=== PATIENT | male | born 1955 | race Caucasian/White ===

== ENCOUNTER 2017-06-30 22:43 | Observation (INO) | payer SELFPAY ==
[2017-06-30 22:44] VITALS: BP 125/88; PULSE 63; RESP 16; TEMP 37.1; O2SAT 96; BMI 29.8
--- NOTE | 2017-06-30 22:46 | EKG12_ITS ---
Test Reason : CP Blood Pressure : / mmHG Vent. Rate : 056 BPM Atrial Rate : 056 BPM P-R Int : 200 ms QRS Dur : 088 ms QT Int : 414 ms P-R-T Axes : 031 -10 005 degrees QTc Int : 399 ms Sinus bradycardia Otherwise normal ECG Confirmed by JAMIN MCCALL ([id number]), news copy editor SERGIO GARDINER ([id number]) on 07/04/2017 1:43:43 PM Referred By: DR LOYD Confirmed By:JAMIN MCCALL
--- NOTE | 2017-06-30 22:46 | NURSING ---
NO OLD EKG'S IN MUSE
--- NOTE | 2017-06-30 22:47 | RAD_ITS ---
STUDY: X-RAY CHEST REASON FOR EXAM: Male, 61 years old. Chest pain TECHNIQUE: Frontal views COMPARISON: None. FINDINGS: The lungs are clear and expanded. There is no demonstrated pleural abnormality. Normal size heart. Normal mediastinum and chayo. Normal visualized pulmonary arteries. Normal visualized aortic arch and descending thoracic aorta. Mild degenerative changes of the thoracic spine. Normal visualized ribs, clavicles, and shoulders. There is no demonstrated abnormality of the visualized soft tissue structures of the upper abdomen. RAD/Chest 1 View (Portable) IMPRESSION: Normal x-ray examination of the chest. Electronically Signed: Vinh Lira DO at 23:14 EST Tel [phone], Service support ,
[2017-06-30 22:53] VITALS: O2SAT 97
[2017-06-30 22:55] VITALS: BP 125/88; PULSE 67; RESP 16; O2SAT 98
[2017-06-30 23:05] LABS: Absolute Neutrophil Count 6.6 X10^3/uL (2.0-7.7); Eosinophil# 0.14 X10^3/uL; Eosinophils% 1.6 % (0-5); Hematocrit 43.3 % (40-54); Lymphocyte % 13.9 % (19-41); Mean Corp Hgb Conc 34.6 g/gl (32-36); Mean Corpuscular Hgb 31.4 pg (27.0-32.0); Mean Corpuscular Volume 90.6 fL (80-94); Monocyte# 0.63 X10^3/uL; Monocyte% 7.3 % (0-10); Neutrophil # 6.64 X10^3/uL (2.7-7.7); Platelet Count 214 K/mm3 (150-450); RBC Distribution Width CV 13.2 % (11.6-14.6); RBC Distribution Width SD 43.5 fl (35.1-43.9); Red Blood Count 4.78 M/mm3 (4.6-6.2); White Blood Count 8.6 K/mm3 (4.4-11.0)
[2017-06-30 23:10] LABS: POSITIVE COUNT NO; POSITIVE DIFFERENTIAL NO; POSITIVE MORPHOLOGY NO
--- NOTE | 2017-06-30 23:12 | ED.RN ---
SPOKE WITH DR. Kenyon ABOUT BABY ASPIRIN, EMS GAVE 3 BABY ASPIRIN 81MG EN ROUTE, CURRENT ORDER DISCONTINUED BY VERBAL ORDER.
--- NOTE | 2017-06-30 23:12 | ED.VISSUMM ---
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 he began having chest pain rating to his left arm, paramedics were called he was given nitroglycerin and aspirin his symptoms went away indicates he had similar symptoms 1 week ago was seen at [facility] department sounds like 2 troponins were negative and he was scheduled to follow-up with his family doctor who scheduled an outpatient stress echo for sometime next week, the patient reports he has no history of DE PE or DVT he does think he had a stress test 10 years ago that was negative he denies had a past history Physical Examination: [] Sitting comfortably pain free after the nitro by EMS vital signs are within normal range head neck chest unremarkable lungs are clear heart tones are normal abdomen soft nontender his pulses are symmetric and moving all 4 extremities at difficulty upper lower extremities are without cyanosis clubbing or edema Test Results: [] Emergency Department Course and Treatment: [] EKG shows a sinus rhythm nothing acute screening labs are obtained that are all generally unremarkable, see chest x-ray and lab reports The patient's symptoms were related to exertion and it was left arm improved with nitro and aspirin by EMS, and he had similar symptoms last week I spoke with the hospitalist and asked them to see the patient for admission and further management patient and agree Treatment Plan: [] Disposition: [] Admit pending hospitalist evaluation Impression: [] chest pain possible onset angina This note was generated with [employer] dictation software. It may contain incorrect words, spelling, and punctuation that were not noted in review of the chart prior to signing ED Disposition - Plan for ED Patient: Chief Complaint: Chest Pain Referrals: Jono López, HUNG-C [Primary Care Provider] -
[2017-06-30 23:24] LABS: Anion Gap 8 (5-15); BUN 14 mg/dL (7-18); BUN/Creat Ratio 14.4 RATIO (10-20); Calcium,Total 8.3 mg/dL (8.5-10.1); Chloride 107 mmol/L (98-107); Creatinine, Serum 0.97 mg/dL (0.70-1.30); EST Glomerular Filtration Rate 83 mL/min (>60); Est Glom Filt Rate - Afr Amer 101 mL/min (>60); Estimated Creatinine Clearance 78.96 ml/min; Glucose 113 mg/dL (74-106); Potassium 3.5 mmol/L (3.5-5.1); Sodium Level 140 mmol/L (136-145)
[2017-06-30 23:45] VITALS: BP 126/78; PULSE 57; RESP 16; TEMP 37.1; O2SAT 97
[2017-06-30 23:47] VITALS: BP 126/78; PULSE 57; RESP 16; O2SAT 97
--- NOTE | 2017-06-30 23:49 | HP.PCM_ITS ---
Problem List (1) Hyperlipidemia Status: Chronic History of Present Illness Date of Admission: 06/30/17 Chief Complaint: Chest pain. The patient is a 61 year old M with past medical history as mentioned above presented to the emergency department because of chest pain. His symptoms started around 7:30 PM tonight with left-sided chest pain, dull aching pain, 6 out of 10 in severity, radiates to his left upper arm, left jaw and left side of his neck, no associated symptoms and without aggravating or relieving factors. His symptoms lasted until he came to the emergency room. Had associated shortness of breath, dizziness, lightheadedness, syncope or presyncope. He mentioned that one week ago, he had similar kind of chest pain that was milder and lasted for shortness of time. During that time, he went to another facility ER where he was evaluated with EKG and cardiac enzymes which were unremarkable according to the patient and he is supposed to have stress test done next week. Today, the pain got worse and he was concerned and he came to the emergency room. He denied family history of premature CAD. In the emergency room, his vital signs were stable. His routine blood work was unremarkable. EKG revealed sinus bradycardia, normal SC interval, normal QRS, normal QTC and no acute ischemic changes. First troponin is negative. Chest x- ray showed no acute findings. He is being admitted for atypical chest pain/ probable angina for evaluation. Past Medical History Past Medical History (Chronic Problems): Chronic Problems Hyperlipidemia (Chronic) Allergies No Known Allergies Allergy (Verified 06/30/17 22:48) Home Medications: Ambulatory Orders Medication Instructions Recorded Aspirin [Aspirin, Baby] 81 mg PO DAILY@0800 06/30/17 Atorvastatin Calcium [Lipitor] 80 mg PO QHS 06/30/17 Lutz-3/Dha/Epa/Fish Oil [Fish Oil 2,000 mg PO DAILY 06/30/17 1,000 mg Softgel] Surgical History: noncontributory Psychiatric History: No pertinent psych hx Lives: Spouse/ Significant Other Smoking Status: Never smoker Alcohol: Rare Drugs: None - *Family History Maternal History Items: No pertinent history Paternal History Items: No pertinent history Review of Systems Constitutional: Denies: Anorexia, Chills, Fever, Malaise, Weakness Eyes: Denies: Blurred vision, Double vision, Drainage, Redness HEENT: Denies: Difficulty Hearing, Dysphasia, Ear Pain, Eye Pain, Nasal bleeding , Sore Throat Cardiovascular: Reports: Chest Pain. Denies: Edema, Heaviness, Light Headedness , Orthopnea, Palpitations, Paroxysmal Noc. Dyspnea, Syncope Respiratory: Denies: Cough, Hemoptysis, Pleuritic Pain, Shortness of Breath, Sputum production, Wheezing Gastrointestinal: Denies: Abdominal Pain, Constipation, Diarrhea, Nausea, Vomiting Genitourinary: Denies: Dysuria, Frequency, Hematuria Musculoskeletal: Denies: Arm Pain, Back Pain, Foot Pain Skin: Denies: Dryness, Rash Neurological: Denies: Balance problems, Blurred vision, Double vision, Change in Speech, Slurred speech, Confusion, Headaches, Incoordination, Numbness Psychiatric: Denies: Anxiety, Depression VTE Information - Inpt Only VTE Present on Admission: No VTE Mechan Device Prophylaxis: None VTE Pharm Prophylaxis ordered?: Yes - Physical Exam General: Alert, Oriented x3, Cooperative, No apparent distress HEENT: Atraumatic, PERRLA Oral: Moist Mucosa, No Gingival or Mucosal Lesions/ Ulcerations Neck: Supple, No JVD, Negative Carotid Bruits, Trachea Midline, Thyroid Normal Size and Texture Lungs: Clear to auscultation, Normal air movement, No rhonchi, No wheeze, No rales Cardiovascular: Regular rate, Regular Rhythm, Normal S1, Normal S2, No murmurs, PMI Normal Abdomen: Bowel Sounds Present, Soft, Non Tender, Non-Distended, No Hepato- splenomegaly Extremities: No clubbing, No cyanosis, No edema Skin: No rashes, No breakdown Lymphatic: No Cervical, Supraclavicular, or Inguinal Adenopathy Neurological: Cranial nerves II-XII grossly intact, Motor Exam 5/5 strength throughout Psych/Mental Status: Normal Affect, Appropriate, Alert and oriented to time, place, person, mood and affect Vital Signs Temp Pulse Resp BP Pulse Ox 98.7 F 57 L 16 126/78 H 97 06/30/17 23:45 06/30/17 23:45 06/30/17 23:45 06/30/17 23:45 06/30/17 23:45 Laboratory Tests 3 06/30/17 06/30/17 Range/Units 22:50 22:50 WBC 8.6 (4.4-11.0) K/mm3 RBC 4.78 (4.6-6.2) M/mm3 Hgb 15.0 (13.0-16.5) g/dl Hct 43.3 (40-54) % MCV 90.6 (80-94) fL MCH 31.4 (27.0-32.0) pg MCHC 34.6 (32-36) g/gl RDW 13.2 (11.6-14.6) % RDW Differential 43.5 (35.1-43.9) fl Plt Count 214 (150-450) K/mm3 MPV 9.0 (6.2-12.0) fl Immature Gran % (Auto) 0.200 (0.0-0.9) % Neut % (Auto) 77.0 H (47-70) % Lymph % (Auto) 13.9 L (19-41) % [place] % (Auto) 7.3 (0-10) % Eos % (Auto) 1.6 (0-5) % Baso % (Auto) 0.0 (0-1) % Absolute Neuts (auto) 6.6 (2.0-7.7) X10^3/uL Absolute Lymphs (auto) 1.20 (0.83-4.51) X10^3/ul Total Counted Not Reportable Sodium 140 (136-145) mmol/L Potassium 3.5 (3.5-5.1) mmol/L Chloride 107 (98-107) mmol/L Carbon Dioxide 25.0 (21.0-32.0) mmol/L Anion Gap 8 (5-15) BUN 14 (7-18) mg/dL Creatinine 0.97 (0.70-1.30) mg/dL Estim Creat Clear Calc 78.96 ml/min Est GFR (MDRD) Af Amer 101 (>60) mL/min Est GFR (MDRD) Non-Af 83 (>60) mL/min BUN/Creatinine Ratio 14.4 (10-20) RATIO Glucose 113 H (74-106) mg/dL Calcium 8.3 L (8.5-10.1) mg/dL Troponin I < 0.02 (<0.06) ng/mL Clinical Impression(s) from Imaging Studies Chest X-Ray 06/30/17 22:47 IMPRESSION: Normal x-ray examination of the chest. Electronically Signed: Vinh Lira DO at 23:14 EST Tel [phone], Service support , Assessment/Plan This is a 61 years old male patient presented to the emergency room because of atypical chest pain which could be due to angina pectoris and he is being admitted for evaluation. #1 atypical chest pain/probable angina pectoris: Patient provided typical symptoms of angina pectoris. First EKG revealed no acute ischemic changes. First troponin is negative. He denied personal or family history of CAD, no family history of premature CAD. He has a history of hyperlipidemia and has been on aspirin. His ZABRINA score is 1. Chest x-ray showed no acute findings. Plan: Admit to PCU for observation, cardiac monitoring, serial cardiac enzymes, repeat EKG tomorrow morning, TSH, continue with the aspirin and statins, nuclear stress test tomorrow morning if cardiac enzymes are negative. #2 hyperlipidemia: Continue statins. #3 DVT prophylaxis: Subcu Lovenox. This note was generated with [employer] dictation software. It may contain incorrect words, spelling, and punctuation that were not noted in checking the note before signing. Code Visit OBSV E&M: 82300 Initial observation care L3
[2017-07-01] VITALS (8 sets, daily range): BP systolic 122–133; BP diastolic 68–78; PULSE 60–79; RESP 16; TEMP 36.5–36.9; O2SAT 96–97; BMI 27.8; BMI 29.9
[2017-07-01] MEDS: 0.9% Normal Saline 1,000 ML 75 ML IV (00:20)
[2017-07-01] MEDS: 0.9% NaCl Peripheral Flush Adult/Peds IV (00:20)
[2017-07-01 00:27] LABS: Thyroid Stim Hormone (TSH) 3.25 uIU/mL (0.358-3.74)
--- NOTE | 2017-07-01 05:55 | EKG12_ITS ---
Test Reason : AM EKG Blood Pressure : / mmHG Vent. Rate : 063 BPM Atrial Rate : 063 BPM P-R Int : 198 ms QRS Dur : 088 ms QT Int : 398 ms P-R-T Axes : 056 -08 008 degrees QTc Int : 407 ms Normal sinus rhythm Normal ECG When compared with ECG of 30-JUN-2017 22:45, MANUAL COMPARISON REQUIRED, DATA IS UNCONFIRMED Confirmed by JASON OCONNELL, SAMANTHA ([id number]), continuity editor SERGIO GARDINER ([id number]) on 07/04/2017 3:25:55 PM Referred By: Confirmed By:SAMANTHA GOMEZ MD
[2017-07-01] MEDS: Aspirin E.C. 81 MG Tablet PO (06:18)
[2017-07-01 07:05] LABS: Absolute Lymphocyte Count 1.02 X10^3/ul (0.83-4.51); Absolute Neutrophil Count 4.3 X10^3/uL (2.0-7.7); Basophil# 0.01 X10^3/uL; Basophil% 0.2 % (0-1); Eosinophil# 0.13 X10^3/uL; Eosinophils% 2.2 % (0-5); Hematocrit 43.5 % (40-54); Hemoglobin 14.8 g/dl (13.0-16.5); Lymphocyte # 1.02 X10^3/ul (4.0); Lymphocyte % 17.1 % (19-41); Mean Platelet Vol. 9.3 fl (6.2-12.0); Monocyte# 0.52 X10^3/uL; Monocyte% 8.7 % (0-10); Neutrophil # 4.28 X10^3/uL (2.7-7.7); Neutrophil % 71.6 % (47-70); Platelet Count 207 K/mm3 (150-450); RBC Distribution Width CV 13.4 % (11.6-14.6); RBC Distribution Width SD 44.2 fl (35.1-43.9); Red Blood Count 4.78 M/mm3 (4.6-6.2)
[2017-07-01 07:08] LABS: International Normalized Ratio 1.1; Prothrombin Time (Protime)PT. 14.4 SECONDS (11.7-14.9)
[2017-07-01 07:09] LABS: POSITIVE COUNT NO; POSITIVE DIFFERENTIAL NO; POSITIVE MORPHOLOGY NO
[2017-07-01 07:28] LABS: Anion Gap 9 (5-15); BUN 11 mg/dL (7-18); BUN/Creat Ratio 12.2 RATIO (10-20); Calcium,Total 8.4 mg/dL (8.5-10.1); Chloride 106 mmol/L (98-107); EST Glomerular Filtration Rate 91 mL/min (>60); Est Glom Filt Rate - Afr Amer 110 mL/min (>60); Glucose 85 mg/dL (74-106); Potassium 3.8 mmol/L (3.5-5.1); Sodium Level 141 mmol/L (136-145)
--- NOTE | 2017-07-01 12:13 | STRESSREP ---
Stress Test Report Exercise myocardial perfusion stress test. 61-year-old man with a history of chest pain. Stress protocol: Resting EKG demonstrates normal sinus rhythm with rate of 69 bpm normal intervals and noted resting blood pressure is 122/84. The patient exercised according to the regular Aki protocol for a total duration of 11 minutes. He completed 2 minutes into stage IV of the Aki protocol. The maximum heart rate attained was 137 bpm which was 86% of maximum predicted heart rate the maximum workload was 13.4 metabolic equivalents. The patient maintained sinus rhythm throughout the recording at rest and during peak exercise upsloping ST changes only were noted would not be the criteria for ischemia. Resting blood pressure was 122/84 with a peak blood pressure 164/72. Myocardial perfusion protocol. 11.9 mCi of technetium 99m sestamibi was injected at rest. The patient exercised according to regular Aki protocol for 11 minutes. At peak exercise 33.3 mCi of technetium 99m sestamibi was injected. Stress images were obtained. Stress and rest images were reconstructed and compared in the short axis vertical long and horizontal long axis. Gated images were also obtained. Perfusion SPECT analysis. Review of the images demonstrate normal uptake of tracer noted in all areas of the myocardium. The resting images similarly demonstrate normal uptake of tracer noted in all areas of the myocardium. No areas of reversibility are noted suggest ischemia. No previous infarct is noted. Gated SPECT analysis: The gated ejection fraction is 73%. Conclusion: Normal exercise myocardial perfusion stress test at a high workload. Preserved ejection fraction.
--- NOTE | 2017-07-01 12:23 | PCM.DC ---
- Discharge Diagnoses Current Active Problems: Chest pain Current Active and Chronic Problems Hyperlipidemia (Chronic) You will use the following diet at home:: No restrictions, Cardiac Discharge Activity: Return to Normal Activity Allergies/Adverse Reactions: Allergies No Known Allergies Allergy (Verified 07/01/17 00:08) Medications to take at Discharge Aspirin [Aspirin, Baby] 81 mg PO DAILY@0800 06/30/17 Atorvastatin Calcium [Lipitor] 80 mg PO QHS 06/30/17 Colton-3/Dha/Epa/Fish Oil [Fish Oil 1,000 mg Softgel] 2,000 mg PO DAILY 06/30/17 Primary Care Physician: Jono López, [employer] [Primary Care Provider] - Within 2 Weeks Proposed Discharge Date: 07/01/17
--- NOTE | 2017-07-01 12:24 | PCM.DC.SUM ---
Discharge Date and Diagnosis Date of Admission: 06/30/17 Date of Discharge: 07/01/17 - Secondary Discharge Diagnosis Chronic Problems Hyperlipidemia (Chronic) Hospital Course and Treatment Imaging Results: 07/01/17 05:55 Nuclear Stress Test - Chemical [NM] AM (NON MEDS) Summary of Care Provided: This is a 61-year-old male who presented to the emergency room due to chest discomfort the patient was placed in the progressive care unit and rule out acute coronary syndrome with negative cardiac enzymes. He underwent a stress test that was negative for ischemia . he was discharged home symptom-free. He is recommended to see his primary care doctor should his symptoms recur. Discharge Diet: No Restrictions Discharge Activity: Return to Normal Activity Home Medications: Medications to take at Discharge Aspirin [Aspirin, Baby] 81 mg PO DAILY@0800 06/30/17 Atorvastatin Calcium [Lipitor] 80 mg PO QHS 06/30/17 Chadron-3/Dha/Epa/Fish Oil [Fish Oil 1,000 mg Softgel] 2,000 mg PO DAILY 06/30/17 Primary Care Physician: Jono López, [employer] [NON-STAFF] - Within 2 Weeks Meaningful Use Info Meaningful Use Diagnoses (Choose all that apply): None applicable Code Visit OBSV E&M: 84414 Observation care discharge
== END 2017-07-01 13:18 | disposition home or self-care (01) ==
LOC: ED 23:31 → PCU 23:39
PROVIDERS: Admitting Provider Hospitalist; Emergency Provider Emergency Medicine; Family Provider Nurse Practitioner Family; PCP Nurse Practitioner Family; Visit Provider Internal Medicine
DX: R07.89 Other chest pain (principal); E78.5 Hyperlipidemia, unspecified; R06.02 Shortness of breath; R42 Dizziness and giddiness; R00.1 Bradycardia, unspecified; Z79.82 Long term (current) use of aspirin; Z79.899 Other long term (current) drug therapy
CPT/HCPCS: 36415; 71045; 78452; 80048; 84443; 84484; 85025; 85610; 85730; 93005; 93017; 96360; 96361; 99218; 99285; A9500; J7030; A4216; G0378

== ENCOUNTER → 2018-09-28 10:49 | Outpatient (CLI) | payer SELFPAY ==
[2018-09-28 13:22] LABS: ALB/GLOB Ratio 1.2 RATIO (0.9-2.4); AST(SGOT) 17 U/L (15-37); Alanine Aminotransfer ALT/SGPT 22 U/L (16-61); Alkaline Phosphatase 119 U/L (45-117); Anion Gap 9 (5-15); BUN 14 mg/dL (7-18); BUN/Creat Ratio 14.3 RATIO (10-20); Calcium,Total 8.9 mg/dL (8.5-10.1); Chloride 107 mmol/L (98-107); Cholesterol 197 mg/dL (200); Creatinine, Serum 0.98 mg/dL (0.70-1.30); EST Glomerular Filtration Rate 82 mL/min (>60); Est Glom Filt Rate - Afr Amer 99 mL/min (>60); Globulin 3.4 g/dL (2.2-4.2); Glucose 90 mg/dL (74-106); High Density Lipoprotein 63 mg/dL; PSA,Total - Annual Screen 0.88 ng/mL (0.00-4.00); Potassium 4.1 mmol/L (3.5-5.1); Protein, Total 7.4 g/dL (6.4-8.2); Sodium Level 141 mmol/L (136-145); Triglycerides 49 mg/dL; Very Low Density Lipoprotein 10 mg/dL (5-40)
== END ==
PROVIDERS: Family Provider Family Medicine; PCP Family Medicine; Visit Provider Family Medicine
DX: Z00.00 Encounter for general adult medical examination without abnormal findings (principal); Z12.5 Encounter for screening for malignant neoplasm of prostate; E78.5 Hyperlipidemia, unspecified
CPT/HCPCS: 36415; 80053; 80061; 84153; G0103

== ENCOUNTER 2019-11-30 12:15 | Observation (INO) | payer MEDICARE, OTHER, SELFPAY ==
[2019-11-30] VITALS (10 sets, daily range): BP systolic 127–151; BP diastolic 81–96; PULSE 59–83; RESP 11–17; TEMP 36.3–36.9; O2SAT 95–99; BMI 27.2; BMI 26.5; BMI 26.3
--- NOTE | 2019-11-30 12:32 | EKG12_ITS ---
Test Reason : NEURO SYMPTOMS Blood Pressure : / mmHG Vent. Rate : 065 BPM Atrial Rate : 065 BPM P-R Int : 188 ms QRS Dur : 092 ms QT Int : 414 ms P-R-T Axes : 058 -09 003 degrees QTc Int : 430 ms Normal sinus rhythm Normal ECG Confirmed by KALEY OCONNELL, ALL ([id number]), city editor JOAN PETERSEN ([id number]) on 12/04/2019 10:43:00 AM Referred By: MARYAM Confirmed By:ALL ROCHE MD
--- NOTE | 2019-11-30 12:32 | CT_ITS ---
STUDY: CT BRAIN WITHOUT CONTRAST REASON FOR EXAM: Male, 64 years old. RIGHT FACIAL DROOP RADIATION DOSAGE (If Supplied By Facility): CTDIvol = ( 44.99 ) mGy, DLP = ( 815.79 ) mGycm TECHNIQUE: Transaxial CT imaging of the brain was performed without administration of intravenous contrast material. Individualized dose optimization techniques were used for this CT. COMPARISON: No relevant priors. FINDINGS: Normal soft tissue structures. Normal calvarium. Normal size ventricles and extra-axial spaces for the patient''s age. Normal white matter tracts of the cerebral hemispheres. Normal basal ganglia and thalami. Normal brainstem. Normal cerebellum. There is no intracranial hemorrhage. There are no findings of an acute ischemic infarction. Normal visualized paranasal sinuses. CT/Brain/Head without Contrast IMPRESSION: Normal unenhanced CT scan of the brain. Electronically Signed: Marko Gaytan, at 13:20 EDT , Service support ,
[2019-11-30 12:41] LABS: Bedside Glucose 94 mg/dL (70-110)
[2019-11-30 12:45] LABS: Absolute Lymphocyte Count 0.96 X10^3/uL (0.83-4.51); Absolute Neutrophil Count 6.1 X10^3/uL (2.0-7.7); Basophil# 0.01 X10^3/uL; Basophil% 0.1 % (0-1); Eosinophil# 0.04 X10^3/uL; Eosinophils% 0.5 % (0-5); Hematocrit 44.6 % (40-54); Hemoglobin 15.3 g/dL (13.0-16.5); Lymphocyte # 0.96 X10^3/ul (4.0); Lymphocyte % 12.5 % (19-41); Mean Corp Hgb Conc 34.3 g/dL (32-36); Mean Corpuscular Hgb 31.1 pg (27.0-32.0); Mean Corpuscular Volume 90.7 fL (80-94); Mean Platelet Vol. 8.8 fl (6.2-12.0); Monocyte# 0.57 X10^3/uL; Monocyte% 7.4 % (0-10); NRBC Flagged by Analyzer 0 % (0-5); Neutrophil # 6.07 X10^3/uL (2.7-7.7); Neutrophil % 79.2 % (47-70); Platelet Count 244 K/mm3 (150-450); RBC Distribution Width CV 13.1 % (11.6-14.6); RBC Distribution Width SD 43.4 fl (35.1-43.9); Red Blood Count 4.92 M/mm3 (4.6-6.2); White Blood Count 7.7 K/mm3 (4.4-11.0)
[2019-11-30 12:53] LABS: International Normalized Ratio 1.1; Partial Thromboplast Time 32.2 Seconds (24.1-36.2); Prothrombin Time (Protime)PT. 13.2 SECONDS (11.7-14.9)
[2019-11-30 13:08] LABS: Anion Gap 3 (5-15); BUN 15 mg/dL (7-18); BUN/Creat Ratio 14.9 RATIO (10-20); Calcium,Total 9.1 mg/dL (8.5-10.1); Chloride 107 mmol/L (98-107); Creatinine, Serum 1.01 mg/dL (0.70-1.30); EST Glomerular Filtration Rate 79 mL/min (>60); Est Glom Filt Rate - Afr Amer 95 mL/min (>60); Estimated Creatinine Clearance 75.29 ml/min; Glucose 92 mg/dL (74-106); Potassium 3.5 mmol/L (3.5-5.1); Sodium Level 139 mmol/L (136-145)
--- NOTE | 2019-11-30 13:10 | RAD_ITS ---
STUDY: X-RAY CHEST REASON FOR EXAM: Male, 64 years old. Neuro symptoms TECHNIQUE: Single AP portable view of the chest. COMPARISON: Comparison made with prior study of 06/30/2017. FINDINGS: EKG electrodes are seen. Stable elevation of the right hemidiaphragm. The lungs are clear. There is no demonstrated pleural abnormality. Normal size heart. Normal mediastinum and chayo. Normal visualized pulmonary arteries. There is atherosclerotic tortuosity of the aortic arch and descending thoracic aorta. Normal visualized thoracic spine. There is degenerative osteoarthritis of the bilateral shoulders. There is no demonstrated abnormality of the visualized soft tissue structures of the upper abdomen. RAD/Chest 1 View IMPRESSION: No acute abnormality is seen. Electronically Signed: Marko Gaytan, at 13:27 EDT , Service support ,
--- NOTE | 2019-11-30 13:25 | ED.VIS.GEN ---
History of Present Illness Chief Complaint: Neuro S/Sx Informant: Patient, Family Narrative: 4-year-old male with history of hyperlipidemia presenting with left-sided facial weakness and numbness. This is been ongoing since Tuesday. Patient has no symptoms in his extremities. He states he went to work today and worked all day. He called his doctor's office for an appointment and they told him to come to the ED. He has no history of stroke. He has no other medical problems that he elicits. He states he feels otherwise well. Past Medical History - Allergies and Home Meds Allergies/Adverse Reactions: Allergies No Known Allergies Allergy (Verified 11/30/19 12:18) Primary Care Physician: Elvis Cesar DO [Primary Care Provider] - Prior records reviewed: Yes Surgical History: noncontributory Smoking Status: Never smoker Alcohol: None Drugs: None - Family History Maternal Family History: Reports: No pertinent history Paternal Family History: Reports: No pertinent history Review of Systems General: Denies: Chills, Fever Eyes: Denies: Visual changes - bilaterally, Diplopia ENT: Denies: Rhinorrhea, Sore throat Cardiovascular: Denies: Chest pain, Palpitations Respiratory: Denies: Dyspnea, Cough, Dyspnea on exertion Gastrointestinal: Denies: Abdominal pain, Nausea, Vomiting, Diarrhea, Melena, Hematochezia Musculoskeletal: Denies: Back pain, Extremity Pain Neurological: Reports: - - Sided facial droop and numbness Psych: Denies: Depression, Anxiety Endocrine: Denies: Polyuria Hematologic: Denies: Easy bruising Physical Exam Vital Signs/Narrative: Vital Signs Temp Pulse Resp BP Pulse Ox 11/30/19 12:16 97.4 F L 77 16 151/83 H 96 General: Well nourished, Well developed, No Acute Distress Head: Normocephalic, Atraumatic Eyes: Perrl, EOMI ENT: Moist mucous membranes Cardiovascular: Regular rate, Regular rhythm Respiratory: No distress, CTA bilaterally Neurological: Alert, Oriented x3, Left side facial droop - Crease sensation on the left side of the face. Diagnostic/Tx/Re-eval Clinical Impression(s) from Imaging Studies Brain CT 11/30/19 12:32 IMPRESSION: Normal unenhanced CT scan of the brain. Electronically Signed: Marko Gaytan, at 13:20 EDT , Service support , Chest X-Ray 11/30/19 13:10 IMPRESSION: No acute abnormality is seen. Electronically Signed: Marko Gaytan, at 13:27 EDT , Service support , Laboratory Data 11/30/19 11/30/19 11/30/19 12:28 12:37 12:37 WBC 7.7 RBC 4.92 Hgb 15.3 Hct 44.6 MCV 90.7 MCH 31.1 MCHC 34.3 RDW Std Deviation 43.4 RDW Coeff of Joey 13.1 Plt Count 244 MPV 8.8 Immature Gran % (Auto) 0.300 Neut % (Auto) 79.2 H Lymph % (Auto) 12.5 L [place] % (Auto) 7.4 Eos % (Auto) 0.5 Baso % (Auto) 0.1 Absolute Neuts (auto) 6.1 Absolute Lymphs (auto) 0.96 Nucleated RBC % 0 PT 13.2 INR 1.1 APTT 32.2 Sodium Potassium Chloride Carbon Dioxide Anion Gap BUN Creatinine Estim Creat Clear Calc Est GFR (MDRD) Af Amer Est GFR (MDRD) Non-Af BUN/Creatinine Ratio Glucose Calcium Troponin I POC Glucose 94 11/30/19 12:37 WBC RBC Hgb Hct MCV MCH MCHC RDW Std Deviation RDW Coeff of Joey Plt Count MPV Immature Gran % (Auto) Neut % (Auto) Lymph % (Auto) [place] % (Auto) Eos % (Auto) Baso % (Auto) Absolute Neuts (auto) Absolute Lymphs (auto) Nucleated RBC % PT INR APTT Sodium 139 Potassium 3.5 Chloride 107 Carbon Dioxide 29.0 Anion Gap 3 L BUN 15 Creatinine 1.01 Estim Creat Clear Calc 75.29 Est GFR (MDRD) Af Amer 95 Est GFR (MDRD) Non-Af 79 BUN/Creatinine Ratio 14.9 Glucose 92 Calcium 9.1 Troponin I < 0.015 POC Glucose - Rhythm Strip Rhythm Strip: Sinus Rhythm Rate: 65 - EKG Initial EKG Interpretation: Sinus Rhythm, No Acute Injury Pattern - Medical Decision Making Patient presents with symptoms of left-sided facial droop which have been ongoing since Tuesday. NIH is 2. CT brain is negative. Lab work is normal. EKG is sinus rhythm without signs of ischemia. Chest x-ray is negative. This does not present as a Powell's palsy. I believe the patient needs admitted for MRI and possibly neurology consult. Patient was given aspirin after passing swallow eval. He is stable for the medical floor. Impression: 1. Left-sided facial droop 2. Left-sided facial paresthesia ED Disposition - Plan for ED Patient: Disposition: Acute Care Hospital [facility] Referrals: Elvis Cesar DO [Primary Care Provider] -
--- NOTE | 2019-11-30 13:30 | ED.RN ---
dr. gottlieb verbal order for discontinue NIH's d/t symptoms starting tuesday.
[2019-11-30] MEDS: Aspirin 325 MG Tablet PO (13:36)
--- NOTE | 2019-11-30 13:59 | ED.RN ---
1215-pt came in with lt sided facial droop and lt eyelid not blinking with other eye. nih 1 at initial assessment. pt reported that symptoms started tues but that worked all week. some tingling reported to lips and some drooling when eats but no diff swallowing
--- NOTE | 2019-11-30 14:46 | NURSING ---
DR JUAN FOR DR FRANCISCO
--- NOTE | 2019-11-30 15:35 | HP.PCM_ITS ---
<Sam Wen - Last Filed: 11/30/19 15:35> Problem List (1) CVA (cerebral vascular accident) Status: Acute (2) Hyperlipidemia Status: Chronic History of Present Illness Date of Admission: 11/30/19 Chief Complaint: left facial droop The patient is a 64 year old M with past medical history of hyperlipidemia who presents to the ER with complaints of left-sided facial droop. The patient started having symptoms on Tuesday. He was sitting having a meal with his and suddenly could not close his left eye. He also appeared to have left lip drooping and numbness in his left lip. This symptom has persisted since then with no improvement. The patient had no headache, dizziness, double vision, numbness or tingling in his hands and feet, weakness in his arms or legs, difficulty swallowing. The patient did not want to get checked out however his called his family physician today concerning the symptoms who advised coming to the emergency room. The patient states he otherwise feels like his normal self. It does not appear that the symptoms have improved. [] Past Medical History Past Medical History (Chronic Problems): Chronic Problems Hyperlipidemia (Chronic) Allergies No Known Allergies Allergy (Verified 11/30/19 12:18) Home Medications: Ambulatory Orders Medication Instructions Recorded Atorvastatin Calcium [Lipitor] 80 mg PO QHS 06/30/17 Red Yeast Rice 600 mg PO DAILY 11/30/19 Surgical History: tonsillectomy, - - Left ACL Psychiatric History: No pertinent psych hx Lives: Spouse/ Significant Other Smoking Status: Never smoker Tobacco Use: Non-smoker Alcohol: None Drugs: None - *Family History Maternal History Items: High Cholesterol Paternal History Items: COPD - smoker Review of Systems Constitutional: Denies: Chills, Fever, Weight Change HEENT: Denies: Head Aches, Sinus Congestion, Sinus Drainage Cardiovascular: Denies: Chest Pain, Palpitations Respiratory: Denies: Cough, Shortness of breath at rest, Sputum production Gastrointestinal: Denies: Abdominal Pain, Nausea, Vomiting Genitourinary: Denies: Dysuria Musculoskeletal: Denies: Joint Pain, Joint Tenderness Skin: Denies: Lesions, Rash, Wounds Neurological: Reports: - - facial droop. Denies: Focal weakness, Numbness, Tingling Psychiatric: Denies: Anxiety, Depression, Homicidal Ideations, Suicidal Ideations Hematologic/ Lymphatic: Denies: Easy Bruising, Easy Bleeding VTE Information - Inpt Only VTE Present on Admission: No VTE Mechan Device Prophylaxis: None VTE Pharm Prophylaxis ordered?: Yes Patient Problems: Active and Suspected Problems CVA (cerebral vascular accident) (Acute) TIA (transient ischemic attack) (Acute) - Physical Exam Vitals/I&O's: Vital Signs Temp Pulse Resp BP Pulse Ox 97.4 F L 61 13 146/84 H 97 11/30/19 12:16 11/30/19 15:00 11/30/19 15:00 11/30/19 15:00 11/30/19 15:00 Oxygen Delivery Method Room Air Weight: 185 lb Body Mass Index (BMI) 26.5 Finger Stick Blood Glucose 94 General: Alert, Oriented x3, Cooperative HEENT: Atraumatic, PERRLA, EOMI, Normocephalic Neck: Supple, No JVD, Negative Carotid Bruits Lungs: Clear to auscultation, Normal air movement Cardiovascular: Regular rate, No murmurs Abdomen: Bowel Sounds Present, Soft, Non Tender Extremities: No edema, Capillary Refill Less than 3 Seconds Skin: No rashes, No breakdown Musculoskeletal: No Tenderness to Palpation of Joints or Extremities Neurological: Cranial nerves II-XII grossly intact Psych/Mental Status: Normal Affect, Appropriate, Alert and oriented to time, place, person, mood and affect Laboratory Results 11/30/19 12:28: POC Glucose 94 11/30/19 12:37: WBC 7.7, RBC 4.92, Hgb 15.3, Hct 44.6, MCV 90.7, MCH 31.1, MCHC 34.3, RDW Std Deviation 43.4, RDW Coeff of Joey 13.1, Plt Count 244, MPV 8.8, Immature Gran % (Auto) 0.300, Neut % (Auto) 79.2 H, Lymph % (Auto) 12.5 L, Sullivan % (Auto) 7.4, Eos % (Auto) 0.5, Baso % (Auto) 0.1, Absolute Neuts (auto) 6.1, Absolute Lymphs (auto) 0.96, Nucleated RBC % 0 11/30/19 12:37: PT 13.2, INR 1.1, APTT 32.2 11/30/19 12:37: Sodium 139, Potassium 3.5, Chloride 107, Carbon Dioxide 29.0, Anion Gap 3 L, BUN 15, Creatinine 1.01, Estim Creat Clear Calc 75.29, Est GFR (MDRD) Af Amer 95, Est GFR (MDRD) Non-Af 79, BUN/Creatinine Ratio 14.9, Glucose 92, Calcium 9.1, Troponin I < 0.015 Current Medications Labetalol HCl (Trandate) 20 mg IV X1 PRN PRN Reason: BLOOD PRESSURE Assessment/Plan All Active Problems CVA (cerebral vascular accident) (Acute) TIA (transient ischemic attack) (Acute) 1. CVA - left facial droop with left lip numbness occurring tuesday with ongoing symptoms. CT brain neg. Maximize statin and add aspirin. MRI brain in AM, MRA head and neck. PT OT ST evals. Trop neg. FLP in AM. Differential includes bells palsy. 2. HLD - as above DVT ppx: lovenox This patient was seen by Sam Wen PA-C under the supervision of Doctor Miladys. <Carol Hook - Last Filed: 11/30/19 16:05> Problem List (1) Hyperlipidemia Status: Chronic Qualifiers: Hyperlipidemia type: unspecified Qualified Code(s): E78.5 - Hyperlipidemia, unspecified (2) TIA (transient ischemic attack) Status: Acute History of Present Illness The patient is a 64 year old M [] Past Medical History Allergies No Known Allergies Allergy (Verified 11/30/19 12:18) - Physical Exam Vitals/I&O's: Vital Signs Temp Pulse Resp BP Pulse Ox 97.4 F L 61 13 146/84 H 97 11/30/19 15:49 11/30/19 15:49 11/30/19 15:49 11/30/19 15:49 11/30/19 15:49 Oxygen Delivery Method Room Air Weight: 83.915 kg Body Mass Index (BMI) 26.5 Finger Stick Blood Glucose 94 Laboratory Results 11/30/19 12:28: POC Glucose 94 11/30/19 12:37: WBC 7.7, RBC 4.92, Hgb 15.3, Hct 44.6, MCV 90.7, MCH 31.1, MCHC 34.3, RDW Std Deviation 43.4, RDW Coeff of Joey 13.1, Plt Count 244, MPV 8.8, Immature Gran % (Auto) 0.300, Neut % (Auto) 79.2 H, Lymph % (Auto) 12.5 L, Sullivan % (Auto) 7.4, Eos % (Auto) 0.5, Baso % (Auto) 0.1, Absolute Neuts (auto) 6.1, Absolute Lymphs (auto) 0.96, Nucleated RBC % 0 11/30/19 12:37: PT 13.2, INR 1.1, APTT 32.2 11/30/19 12:37: Sodium 139, Potassium 3.5, Chloride 107, Carbon Dioxide 29.0, Anion Gap 3 L, BUN 15, Creatinine 1.01, Estim Creat Clear Calc 75.29, Est GFR (MDRD) Af Amer 95, Est GFR (MDRD) Non-Af 79, BUN/Creatinine Ratio 14.9, Glucose 92, Calcium 9.1, Troponin I < 0.015 Assessment/Plan This patient was seen in conjunction with JENELLE Blandon. I have independently interviewed and examined the patient and reviewed pertinent historical, laboratory, and other data. Please refer to JENELLE Blandon note for his patient's presentation, findings, and recommendations. I have reviewed and his note and concur with his documentation 64-year-old male with past medical history of hyperlipidemia who presented with a 3-day history of left-sided facial droop and numbness. Patient had been reluctant to come to the emergency room. Symptoms persisted. His called her family medicine doctor who told the patient to come to the emergency department. Patient denies any dizziness or palpitations or chest pain or any weakness in his extremities. He still has numbness and tingling in the left side of the face. Received aspirin 325 mg p.o. x1 in the ED. Physical Exam: Gen: Comfortable, not pale, not jaundiced CVS:HS I +II, regular, no murmurs RESP: CTA GI: BS present and normal, soft, nontender, no palpable organs EXT:No edema SCIENTIFIC RESEARCH ASSOCIATE: Alert oriented x3, left-sided facial numbness, slight facial droop Stable vitals. Unremarkable CBC D, BMP, troponins negative CT scan of the brain was unremarkable. Chest x-ray unremarkable ASSESSMENT: 1. Left-sided facial droop, likely secondary to TIA 2. Hyperlipidemia Plan: Admit to PCU, monitor on telemetry MRI of the brain, 2D echo, MRA of the head and neck HgbA1c, lipid profile Continue on TIA/stroke protocol Continue on aspirin 81 mg p.o. daily Continue on home atorvastatin 80 mg p.o. nightly OBSV E&M: [id number] Initial observation care L3
--- NOTE | 2019-11-30 15:37 | NURSING ---
127 PAINTSIL TIA/CVA
--- NOTE | 2019-11-30 16:21 | MRI_ITS ---
STUDY: MRI BRAIN WITHOUT CONTRAST REASON FOR EXAM: Male, 64 years old. Left facial droop island paralysis limit tingling TECHNIQUE: Standardized multiplanar fat and water weighted pulse sequences were obtained. COMPARISON: CT head November 30 2019 FINDINGS: Brain parenchyma is intact without focal lesions, mass effect, extra parenchymal fluid collections, hydrocephalus or herniation. Major vascular flow structures are intact. Craniocervical junction is unremarkable. There is a small right parietal scalp lipoma less than 1 cm thick. MRI/Brain without Contrast IMPRESSION: 1. Unremarkable brain MRI. Electronically Signed: Zeina Braswell, at 20:05 EDT Tel , Service support ,
--- NOTE | 2019-11-30 16:21 | ECHOD_ITS ---
Reason For Study: TIA/CVA Procedure This was a 2D Doppler, Color Flow transthoracic echocardiogram. Exam performed portable in patient room. Left Ventricle Normal LV size. Left ventricular systolic function is normal. The estimated ejection fraction is 60 %. No evidence for diastolic dysfunction. No regional wall motion abnormalities noted. Right Ventricle Normal RV size. Normal systolic function. Atria Normal left atrium. Normal right atrium. No doppler evidence for ASD. Bubble contrast study negative for right to left interatrial shunt. Mitral Valve There is no mitral annular calcification. Normal mitral valve. Mild (1+) mitral valve insufficiency. Tricuspid Valve Normal tricuspid valve. Trivial tricuspid valve insufficiency. Right ventricular systolic pressure estimated to be 25 mmHg. Aortic Valve Trisinus/trileaflet aortic valve. Mild diffuse aortic valve thickening. Mild focal aortic valve calcification. Aortic sclerosis, no stenosis. Pulmonic Valve The pulmonic valve is not well visualized. Trivial pulmonic valve insufficiency. Great Vessels Normal sized aortic root. Pericardium/Pleural No pericardial effusion. Medication Performed a rapid injection of agitated mix of 9 cc saline and 1cc air to assess for atrial septal defect. MMode/2D Measurements & Calculations LVIDd: 5.2 cm IVSd: 1.1 cm LVOT diam: 2.1 cm LVIDs: 3.1 cm LVPWd: 0.94 cm RVDd: 3.5 cm FS: 39.6 % LVOT area: 3.5 cm2 Ao root diam: 3.3 cm LAV(MOD-bp): 44.3 ml LA A4 area: 16.6 cm2 LAV(MOD-bp) Indexed: 21.9 ml/m2 LAV(MOD-sp2): 47.1 ml LAV(MOD-sp4): 37.2 ml LA dimension(2D): 3.7 cm RA A4 area: 16.0 cm2 Doppler Measurements & Calculations MV E max nuno: 55.9 cm/sec Lat Peak E' Nuno: 12.5 cm/sec Med Peak E' Nuno: 7.6 cm/sec MV A max nuno: 50.2 cm/sec E/E' lat: 4.5 E/E' med: 7.3 MV E/A: 1.1 Ao V2 max: 131.6 cm/sec LV V1 max: 94.4 cm/sec PA V2 max: 94.4 cm/sec Ao max P.9 mmHg LV V1 max P.6 mmHg Ao V2 mean: 94.2 cm/sec Ao mean P.9 mmHg Ao V2 VTI: 29.8 cm SOBIA(V,D): 2.5 cm2 TR max nuno: 232.4 cm/sec TR max P.6 mmHg Interpretation Summary Left ventricular systolic function is normal. The estimated ejection fraction is 60 %. Mild (1+) mitral valve insufficiency. Trivial tricuspid valve insufficiency. Aortic sclerosis, no stenosis. Trivial pulmonic valve insufficiency. Right ventricular systolic pressure estimated to be 25 mmHg. No evidence for diastolic dysfunction. Bubble contrast study negative for right to left interatrial shunt. Ordering Physician: Carol Hook Referring Physician: Elvis Cesar Performed By: Breanna Blanco, MARLEN, RVT
--- NOTE | 2019-11-30 16:21 | MRI_ITS ---
STUDY: MRA NECK WITH AND WITHOUT CONTRAST REASON FOR EXAM: Male, 64 years old. LEFT facial droop and eyelid paralysis, lip tingling, since Tuesday TECHNIQUE: 3-D [id number] (TOF) imaging was performed in an 1.5 T MRI scanner. 16ml Dotarem via IV was administered for the contrast enhanced images. COMPARISON: None. FINDINGS: RIGHT CAROTID ARTERIES: Normal right common carotid artery (CCA). Normal right common carotid bulb. Normal origin of the right internal carotid (ICA) artery without a hemodynamically significant stenosis. Normal visualized cervical portion of the right internal carotid artery. Normal origin of the right external carotid artery (ECA). LEFT CAROTID ARTERIES: Normal left common carotid artery (CCA). Normal left common carotid bulb. Normal origin of the left internal carotid (ICA) artery without a hemodynamically significant stenosis. Normal visualized cervical portion of the left internal carotid artery. Normal origin of the left external carotid artery (ECA). VERTEBRAL ARTERIES: Normal antegrade flow within the bilateral vertebral artery without a hemodynamically significant stenosis. There is enlargement and heterogeneity of the right thyroid hemilobe. MRI/MRA Neck WITH and W/O Contrast IMPRESSION: Normal bilateral cervical carotid and vertebral arteries. Right thyroid lobe enlargement/nodularity. Refer to ultrasonography for definitive assessment. Electronically Signed: Zeina Braswell, at 20:10 EDT Tel , Service support ,
--- NOTE | 2019-11-30 16:21 | MRI_ITS ---
STUDY: MRA OF THE HEAD WITHOUT CONTRAST REASON FOR EXAM: Male, 64 years old. For patient age there is a right subdural 5 mm hematoma probably right temporal contusion. Difficult to see TECHNIQUE: 3-D [id number] (TOF) imaging was performed with MIPs. The study was performed unenhanced. COMPARISON: None. FINDINGS: Bilateral base of skull carotids, bifurcations, anterior and middle cerebral arteries and proximal branches are patent. Posterior communicating arteries are large on the right and moderate on the left. Posterior cerebral arteries and superior cerebellar arteries and proximal branches are patent. Vertebral arteries, basilar arteries are patent. MRI/MRA Head ONLY without Contrast IMPRESSION: 1. Unremarkable tunica-biloxi of [place] and proximal branches. Electronically Signed: Zeina Braswell, at 19:57 EDT Tel , Service support ,
[2019-11-30] MEDS: 0.9% Normal Saline 1,000 ML 100 ML IV (17:03)
[2019-11-30 17:19] LABS: Hemoglobin A1c 5.3 % (3.8-5.6)
[2019-11-30] MEDS: Atorvastatin Calcium 80 MG Tablet PO (22:32)
[2019-11-30] MEDS: Famotidine 20 MG Tablet PO (22:32)
[2019-12-01] VITALS (7 sets, daily range): BP systolic 109–130; BP diastolic 76–84; PULSE 57–69; RESP 15–16; TEMP 36.7; O2SAT 93–95
[2019-12-01] MEDS: 0.9% Normal Saline 1,000 ML 100 ML IV (04:15)
[2019-12-01 07:33] LABS: Absolute Lymphocyte Count 1.04 X10^3/uL (0.83-4.51); Absolute Neutrophil Count 5.3 X10^3/uL (2.0-7.7); Basophil# 0.02 X10^3/uL; Basophil% 0.3 % (0-1); Eosinophil# 0.12 X10^3/uL; Eosinophils% 1.7 % (0-5); Hematocrit 42.1 % (40-54); Hemoglobin 14.1 g/dL (13.0-16.5); Lymphocyte # 1.04 X10^3/ul (4.0); Lymphocyte % 14.8 % (19-41); Mean Corp Hgb Conc 33.5 g/dL (32-36); Mean Corpuscular Hgb 30.7 pg (27.0-32.0); Mean Corpuscular Volume 91.7 fL (80-94); Mean Platelet Vol. 9.1 fl (6.2-12.0); Monocyte# 0.51 X10^3/uL; Monocyte% 7.2 % (0-10); NRBC Flagged by Analyzer 0 % (0-5); Neutrophil # 5.33 X10^3/uL (2.7-7.7); Neutrophil % 75.7 % (47-70); Platelet Count 219 K/mm3 (150-450); RBC Distribution Width CV 13.2 % (11.6-14.6); Red Blood Count 4.59 M/mm3 (4.6-6.2)
[2019-12-01 07:55] LABS: ALB/GLOB Ratio 1.1 RATIO (0.9-2.4); AST(SGOT) 17 U/L (15-37); Alanine Aminotransfer ALT/SGPT 21 U/L (16-61); Albumin, Serum 3.4 g/dL (3.2-5.0); Alkaline Phosphatase 101 U/L (45-117); Anion Gap 3 (5-15); BUN 9 mg/dL (7-18); BUN/Creat Ratio 10.2 RATIO (10-20); Calcium,Total 8.3 mg/dL (8.5-10.1); Chloride 109 mmol/L (98-107); Cholesterol 156 mg/dL (200); Creatinine, Serum 0.88 mg/dL (0.70-1.30); EST Glomerular Filtration Rate 92 mL/min (>60); Est Glom Filt Rate - Afr Amer 112 mL/min (>60); Estimated Creatinine Clearance 86.41 ml/min; Glucose 92 mg/dL (74-106); High Density Lipoprotein 44 mg/dL; Potassium 3.8 mmol/L (3.5-5.1); Protein, Total 6.4 g/dL (6.4-8.2); Sodium Level 140 mmol/L (136-145); Triglycerides 59 mg/dL; Very Low Density Lipoprotein 12 mg/dL (5-40)
[2019-12-01] MEDS: Famotidine 20 MG Tablet PO (08:54)
[2019-12-01] MEDS: Enoxaparin 40 MG/0.4 ML Syringe SC (08:54)
[2019-12-01] MEDS: Aspirin 81 MG TAB.CHEW PO (08:54)
--- NOTE | 2019-12-01 09:48 | US_ITS ---
STUDY: THYROID ULTRASOUND REASON FOR EXAM: Male, 64 years old. NODULES SEEN ON MRI TECHNIQUE: Ultrasound evaluation of the thyroid was performed with real-time and static garcia-scale imaging. COMPARISON: None. FINDINGS: RIGHT LOBE: The right lobe of the thyroid gland measures 6.4 x 3.9 x 3.3 cm. There is a homogeneous echotexture. Solitary solid nodule (mildly hypoechoic) of the right thyroid lobe measures 5.0 x 3.4 x 2.8 cm with internodular vascularity documented microcalcifications. LEFT LOBE: The left lobe of the thyroid gland measures 4.5 x 1.6 x 1.4 cm. There is a homogeneous echotexture. There are no demonstrated solid, cystic or complex lesions. ISTHMUS: The isthmus measures 3 mm. The regional lymph nodes are normal. US/Thyroid IMPRESSION: 1. Solid nodule (TiRADS 4) of the right thyroid lobe measuring up to 5.0 cm. FNA sampling recommended. Electronically Signed: Omar Champion MD ([place]) at 14:13 EDT , Service support ,
--- NOTE | 2019-12-01 10:16 | DCINST_ITS ---
- Discharge Diagnoses Current Active Problems: Current Active and Chronic Problems CVA (cerebral vascular accident) (Acute) TIA (transient ischemic attack) (Acute) You will use the following diet at home:: Cardiac Your food should be the consistency of: Regular Your liquids should be the consistency of: Regular/Thin Discharge Activity: Return to Normal Activity Allergies/Adverse Reactions: Allergies No Known Allergies Allergy (Verified 11/30/19 12:18) Medications to take at Discharge Atorvastatin Calcium [Lipitor] 80 mg PO QHS 06/30/17 Red Yeast Rice 600 mg PO DAILY 11/30/19 Aspirin [Aspirin, Baby] 81 mg PO DAILY@0800 tab.chew 12/01/19 Prednisone 10 mg PO DAILY 10 Days #45 tab 12/01/19 Valacyclovir HCl [Valtrex] 1,000 mg PO TID #21 tab 12/01/19 The following prescriptions were given: Prednisone 10 mg PO DAILY 10 Days #45 tab Prescription Printed Valacyclovir HCl [Valtrex] 1,000 mg PO TID #21 tab Prescription Printed Primary Care Physician: Elvis Cesar DO [Primary Care Provider] - Please follow up with your Primary Care Physician in: 1-2 weeks Test Results: Test results from this visit will be discussed in further detail at your follow- up appointment, if applicable. Proposed Discharge Date: 12/01/19
[2019-12-01 10:54] LABS: Thyroid Stim Hormone (TSH) 1.61 uIU/mL (0.358-3.74)
--- NOTE | 2019-12-01 13:31 | DS.PCM_ITS ---
<Sam Wen - Last Filed: 12/01/19 14:48> Discharge Date and Diagnosis - Problem List Patient Problems: Active and Suspected Problems Right thyroid nodule (Acute) Powell's palsy (Acute) Date of Admission: 11/30/19 Date of Discharge: 12/01/19 - Primary Discharge Diagnosis Acute Problems: Active Problems Powell's palsy (Acute) Stroke ruled out Enlarged right thyroid HLD - Secondary Discharge Diagnosis Chronic Problems: Chronic Problems Hyperlipidemia (Chronic) Hospital Course and Treatment Imaging Results: 12/01/19 09:48 US Thyroid [Thyroid] [US] Urgent CT/Brain/Head without Contrast IMPRESSION: Normal unenhanced CT scan of the brain. RAD/Chest 1 View IMPRESSION: No acute abnormality is seen. MRI/Brain without Contrast IMPRESSION: 1. Unremarkable brain MRI. 2D TTE: Interpretation Summary Left ventricular systolic function is normal. The estimated ejection fraction is 60 %. Mild (1+) mitral valve insufficiency. Trivial tricuspid valve insufficiency. Aortic sclerosis, no stenosis. Trivial pulmonic valve insufficiency. Right ventricular systolic pressure estimated to be 25 mmHg. No evidence for diastolic dysfunction. Bubble contrast study negative for right to left interatrial shunt. MRI/MRA Head ONLY without Contrast IMPRESSION: 1. Unremarkable [place] and proximal branches. MRI/MRA Neck WITH and W/O Contrast IMPRESSION: Normal bilateral cervical carotid and vertebral arteries. Right thyroid lobe enlargement/nodularity. Refer to ultrasonography for definitive assessment. Operations: None Procedures: 2-D Echocardiogram Summary of Care Provided: Hospital Course: The patient is a 64 year old M with pmhx of HLD who presented to the ER with c/o left facial droop notably the left eye and lip. This began the preceding tuesday spontaneously. He had associated left lip numbness. CT brain was negative. He was admitted for stroke work up. MRI brain was negative for stroke. MRA head and neck were unremarkable for vascular issue. A right thyroid enlargment / nodularity was detected. Follow up thyroid ultrasound was obtain - pending at this time. TSH was normal. Echo was obtained and was unremarkable. The patient was felt to have Jessie palsy. He was placed on prednisone and valtrex. He was discharged home in stable condition and will need follow up with his PCP in 1-2 weeks. This patient was seen by Sam Wen PA-C under the supervision of Dr. Trotter] Patient Problems: Active and Suspected Problems Right thyroid nodule (Acute) Powell's palsy (Acute) - Physical Exam Vitals/I&O's: Vital Signs Temp Pulse Resp BP Pulse Ox 98.0 F 69 15 121/76 H 94 12/01/19 08:40 12/01/19 11:55 12/01/19 08:40 12/01/19 08:40 12/01/19 08:40 Oxygen Delivery Method Room Air Weight: 184 lb 8.43 oz Body Mass Index (BMI) 26.3 Finger Stick Blood Glucose 94 Intake and Output for Last 24 Hours 11/29/19 11/30/19 12/01/19 23:59 23:59 23:59 Intake Total 2105. / Balance / General: Alert, Oriented x3, Cooperative HEENT: Atraumatic, PERRLA, EOMI, Normocephalic Neck: Supple, No JVD, Negative Carotid Bruits Lungs: Clear to auscultation, Normal air movement Cardiovascular: Regular rate, No murmurs Abdomen: Bowel Sounds Present, Soft, Non Tender Extremities: No edema, Capillary Refill Less than 3 Seconds Skin: No rashes, No breakdown Musculoskeletal: No Tenderness to Palpation of Joints or Extremities Neurological: Facial Droop - left Psych/Mental Status: Normal Affect, Appropriate, Alert and oriented to time, place, person, mood and affect Laboratory Results 11/30/19 12:37: Hemoglobin A1c 5.3 11/30/19 16:48: Troponin I < 0.015 12/01/19 07:15: WBC 7.0, RBC 4.59 L, Hgb 14.1, Hct 42.1, MCV 91.7, MCH 30.7, MCHC 33.5, RDW Std Deviation 44.0 H, RDW Coeff of Joey 13.2, Plt Count 219, MPV 9.1, Immature Gran % (Auto) 0.300, Neut % (Auto) 75.7 H, Lymph % (Auto) 14.8 L, [place] % (Auto) 7.2, Eos % (Auto) 1.7, Baso % (Auto) 0.3, Absolute Neuts (auto) 5.3, Absolute Lymphs (auto) 1.04, Nucleated RBC % 0 12/01/19 07:15: Sodium 140, Potassium 3.8, Chloride 109 H, Carbon Dioxide 28.0, Anion Gap 3 L, BUN 9, Creatinine 0.88, Estim Creat Clear Calc 86.41, Est GFR (MDRD) Af Amer 112, Est GFR (MDRD) Non-Af 92, BUN/Creatinine Ratio 10.2, Glucose 92, Calcium 8.3 L, Total Bilirubin 1.20 H, AST 17, ALT 21, Alkaline Phosphatase 101, Total Protein 6.4, Albumin 3.4, Globulin 3.0, Albumin/Globulin Ratio 1.1, Triglycerides 59, Cholesterol 156, LDL Cholesterol 100, VLDL Cholesterol 12, HDL Cholesterol 44 12/01/19 07:15: TSH 1.61 Current Medications Acetaminophen (Tylenol) 650 mg PO Q6H PRN PRN PRN Reason: Pain Score 1-10/Temp > 100.7 F Aspirin (Aspirin, Baby) 81 mg PO DAILY@0800 [facility], [facility]1983 Last Admin: 12/01/19 08:54 Dose: 81 mg Documented by: Atorvastatin Calcium (Lipitor) 80 mg PO QHS [facility], [facility]1983 Last Admin: 11/30/19 22:32 Dose: 80 mg Documented by: Enoxaparin Sodium (Lovenox) 40 mg SC DAILY [facility], [facility]1983 Last Admin: 12/01/19 08:54 Dose: 40 mg Documented by: Famotidine (Pepcid) 20 mg PO BID [facility], [facility]1983 Last Admin: 12/01/19 08:54 Dose: 20 mg Documented by: Sodium Chloride () 1,000 mls @ 100 mls/hr IV .Q10H [facility], [facility]1983 Last Infusion: 12/01/19 12:49 Dose: 0 mls/hr Documented by: Sodium Chloride () 250 mls @ 15 mls/hr IV .[id number] PRN PRN Reason: Saline Flush Sodium Chloride () 250 mls @ 15 mls/hr IV .[id number] PRN PRN Reason: Additional IVPB Infusion Magnesium Hydroxide (Milk Of Magnesia) 30 ml PO DAILY PRN PRN PRN Reason: Constipation Ondansetron HCl (Zofran) 4 mg IV Q8H PRN PRN PRN Reason: NAUSEA/VOMITING Psyllium Hydrophilic Mucilloid (Metamucil) 1 packet PO DAILY PRN PRN PRN Reason: Constipation Sodium Chloride () 10 - 40 ml IV UD PRN PRN Reason: SALINE FLUSH Discharge Diet: Low fat/ Low Cholesterol, 2000 mg Sodium Diet Discharge Activity: Return to Normal Activity Home Medications: Medications to take at Discharge Atorvastatin Calcium [Lipitor] 80 mg PO QHS 06/30/17 Red Yeast Rice 600 mg PO DAILY 11/30/19 Aspirin [Aspirin, Baby] 81 mg PO DAILY@0800 tab.chew 12/01/19 Prednisone 10 mg PO DAILY 10 Days #45 tab 12/01/19 Valacyclovir HCl [Valtrex] 1,000 mg PO TID #21 tab 12/01/19 Following Prescriptions Were Given to Patient: Prednisone 10 mg PO DAILY 10 Days #45 tab Prescription Printed Valacyclovir HCl [Valtrex] 1,000 mg PO TID #21 tab Prescription Printed Primary Care Physician: Elvis Cesar DO [Primary Care Provider] - Please follow up with your Primary Care Physician in: 1-2 weeks Disposition: Home Minutes spent on discharge:: 35 Patient Condition:: Stable Medical Necessity - Tobacco Use Smoking Status: Never smoker Tobacco Use: Non-smoker Meaningful Use Info Meaningful Use Diagnoses (Choose all that apply): None applicable <Jv Trotter E - Last Filed: 12/01/19 15:19> Discharge Date and Diagnosis - Primary Discharge Diagnosis Acute Problems: Active Problems Powell's palsy (Acute) - Secondary Discharge Diagnosis Chronic Problems: Chronic Problems Hyperlipidemia (Chronic) Hospital Course and Treatment Imaging Results: 12/01/19 09:48 US Thyroid [Thyroid] [US] Urgent US/Thyroid IMPRESSION: 1. Solid nodule (TiRADS 4) of the right thyroid lobe measuring up to 5.0 cm. FNA sampling recommended. Electronically Signed: Omar Champion MD ([place]) at 14:13 EDT , Service support , Fax [phone] Summary of Care Provided: Hospitalist note: Discharge summary above reviewed and I concur with above discharge treatment plan. Patient presented to the emergency room because of left facial droop. He had CT scan brain done that showed no acute infarct or hemorrhage. His EKG rev ealed normal sinus rhythm without evidence of acute segment changes or cardiac arrhythmias. Chest x-ray was unremarkable. Routine blood work was unremarkable. MRI brain done and showed no evidence of acute infarct or hemorrhage. MRI brain showed normal [place] and proximal branches, no significant vascular disease. MRA of the neck revealed normal bilateral cervical carotids and vertebral arteries, revealed right thyroid lobe enlargement/nodularity. 2D echocardiogram revealed normal LV size and function, ejection fraction of 60%, bubble contrast study was negative for [id number] shunt. Acute stroke ruled out. Patient symptoms attributed to left Powell's palsy. Patient was started on steroids and acyclovir. Because he was found to have a right thyroid enlargement, TSH was done and it was normal. Thyroid ultrasound done and revealed right thyroid lobe solid nodule measuring up to 5 cm. At this time, thyroid malignancy cannot be ruled out. Patient was informed that he has large thyroid lobe nodule which could be cancer and it will need fine-needle aspiration as outpatient. Patient discharged home in a stable medical condition, discharged on aspirin, tapering prednisone and valacyclovir for left Powell's palsy, patient will need a right thyroid nodule fine-needle aspiration as outpatient, recommended follow-up with PCP in 1 to 2 weeks. - Physical Exam General: Alert, Oriented x3, Cooperative, No apparent distress. HEENT: Atraumatic, PERRLA, EOMI. Neck: Supple, No JVD, Negative Carotid Bruits, Trachea Midline, Thyroid Normal. Lungs: Clear to auscultation, Normal air movement, No rhonchi, No wheeze, No rales. Cardiovascular: Regular rate, Regular Rhythm, Normal S1, Normal S2, PMI Normal. Abdomen: Bowel Sounds Present, Soft, Non Tender, Non-Distended, No Hepato- splenomegaly. Extremities: No clubbing, No cyanosis, No edema Skin: No rashes, No breakdown Neurological: Neuro grossly intact Vital Signs are stable. This note was generated with [employer] dictation software. It may contain incorrect words, spelling, and punctuation that were not noted in checking the note before signing. - Physical Exam Vitals/I&O's: Vital Signs Temp Pulse Resp BP Pulse Ox 98.1 F 64 16 130/84 H 94 12/01/19 15:12/01/19 15:12/01/19 15:12/01/19 15:12/01/19 08:40 Oxygen Delivery Method Room Air Weight: 184 lb 8.43 oz Body Mass Index (BMI) 26.3 Finger Stick Blood Glucose 94 Intake and Output for Last 24 Hours 11/29/19 11/30/19 12/01/19 23:59 23:59 23:59 Intake Total 2466.67 / 2466.67 Balance 2466.67 / 2466.67 Laboratory Results 11/30/19 12:37: Hemoglobin A1c 5.3 11/30/19 16:48: Troponin I < 0.015 12/01/19 07:15: WBC 7.0, RBC 4.59 L, Hgb 14.1, Hct 42.1, MCV 91.7, MCH 30.7, MCHC 33.5, RDW Std Deviation 44.0 H, RDW Coeff of Joey 13.2, Plt Count 219, MPV 9.1, Immature Gran % (Auto) 0.300, Neut % (Auto) 75.7 H, Lymph % (Auto) 14.8 L, [place] % (Auto) 7.2, Eos % (Auto) 1.7, Baso % (Auto) 0.3, Absolute Neuts (auto) 5.3, Absolute Lymphs (auto) 1.04, Nucleated RBC % 0 12/01/19 07:15: Sodium 140, Potassium 3.8, Chloride 109 H, Carbon Dioxide 28.0, Anion Gap 3 L, BUN 9, Creatinine 0.88, Estim Creat Clear Calc 86.41, Est GFR (MDRD) Af Amer 112, Est GFR (MDRD) Non-Af 92, BUN/Creatinine Ratio 10.2, Glucose 92, Calcium 8.3 L, Total Bilirubin 1.20 H, AST 17, ALT 21, Alkaline Phosphatase 101, Total Protein 6.4, Albumin 3.4, Globulin 3.0, Albumin/Globulin Ratio 1.1, Triglycerides 59, Cholesterol 156, LDL Cholesterol 100, VLDL Cholesterol 12, HDL Cholesterol 44 12/01/19 07:15: TSH 1.61 Disposition: Home Minutes spent on discharge:: 29 Patient Condition:: Stable Meaningful Use Info Meaningful Use Diagnoses (Choose all that apply): None applicable OBSV E&M: 60705 Observation care discharge
== END 2019-12-01 10:17 | disposition home or self-care (01) ==
LOC: ED 15:39 → PCU 15:57
PROVIDERS: Physician Assistant; Admitting Provider Internal Medicine; Emergency Provider Student in an Organized Health Care Education/Training Program; PCP Family Medicine; Visit Provider Hospitalist
DX: G51.0 Bell's palsy (principal); E78.5 Hyperlipidemia, unspecified; Z79.899 Other long term (current) drug therapy; E04.1 Nontoxic single thyroid nodule; I08.3 Combined rheumatic disorders of mitral, aortic and tricuspid valves; R29.702 NIHSS score 2
CPT/HCPCS: 36415; 70450; 70544; 70549; 70551; 71045; 76536; 80048; 80053; 80061; 82962; 83036; 84443; 84484; 85025; 85610; 85730; 92610; 93005; 93306; 96360; 96361; 96372; 99218; 99251; 99285; A9575; J7030; A4216; G0378; G0463

== ENCOUNTER → 2019-12-06 | Outpatient (CLI) | payer MEDICARE, OTHER, SELFPAY ==
[2019-11-30 18:04] VITALS: BMI 26.3
--- NOTE | 2019-12-06 16:30 | FLU_PTH ---
PATIENT: ALLEN GARDINER [id number] AGE/SX: 64/M ROOM: RE12/06/[address]: Dr. Link Pham MD : 1955 BED: DIS: 12/06/2019 SPEC #: [id number] RECD: 12/06/19 17:48 STATUS: JAROD LOGAN #: [id number] BALBIR: 12/06/19 16:[address]: Link Pham DEPT: CYTOLOGY RECD BY: Dalton Lyn ENTERED: 12/07/19 07:44 SP TYPE: Fluid OTHR DR: Dr. Elvis Cesar DO Tissues: Thyroid gland, NOS Procedures: Special Stain Group II Surgery Specimen Level IV Cytospin Fluid HEADER OPERATION: FNA thyroid PRE-OP DIAGNOSIS: 5 cm thyroid mass TISSUE SUBMITTED: Right thyroid nodule for cytology DIAGNOSIS CYTOLOGY Right thyroid nodule for cytology, FNA (cytospin and cell block): Suspicious for follicular neoplasm. See comment. SJ:zach 12/10/19 COMMENT Correlation with clinical, radiologic findings and appropriate follow up are necessary. CYTOLOGY STUDY Slides are reviewed. CYTOLOGY GROSS Received is 40 ml of clear red fluid labeled with the patient's name and and designated per the requisition as right thyroid nodule. Submitted for cytology preparation including cell block. / zach 12/07/19 TC:5 CPT: 83076, 18561
== END | disposition home or self-care (01) ==
PROVIDERS: PCP Family Medicine; Referring Provider Otolaryngology; Visit Provider Otolaryngology
DX: E07.9 Disorder of thyroid, unspecified (principal)
CPT/HCPCS: 88108; 88305; 88313

== ENCOUNTER 2019-12-21 05:58 | Inpatient (IN) | payer MEDICARE, OTHER, SELFPAY ==
[2019-11-30 18:04] VITALS: BMI 26.3
[2019-12-21] VITALS (11 sets, daily range): BP systolic 108–139; BP diastolic 72–99; PULSE 63–104; RESP 16–18; TEMP 36–36.9; O2SAT 92–98; BMI 25.8
--- NOTE | 2019-12-21 | THYROID_PTH ---
PATIENT: ALLEN GARDINER LOC: [facility] U#:[id number] AGE/SX: 64/M ROOM: ID310 RE12/21/[address]: Dr. Link Pham MD : 1955 BED: 1 DIS: 12/22/2019 SPEC #: [id number] RECD: 12/21/19 09:28 STATUS: JAROD REQ #: [id number] BALBIR: 12/21/19 00:[address]: Link Pham DEPT: SURGICAL PATHOLOGY RECD BY: Acacia Patel ENTERED: 12/21/19 09:50 SP TYPE: THYROID OTHR DR: Dr. Elvis Cesar, Tissues: Thyroid gland, NOS Procedures: Frozen Section (charge) Frozen Section Add'l ([facility]) Surgery Specimen Level V HEADER OPERATION: Thyroid lobectomy PRE-OP DIAGNOSIS: Nontoxic single thyroid nodule TISSUE SUBMITTED: Right thyroid lobe sent for frozen at 0923 FROZEN SECTION DIAGNOSIS Right thyroid lobe, lobectomy: Follicular neoplasm. AM:zach 12/21/19 MICROSCOPIC DIAGNOSIS Right thyroid lobe, lobectomy: Follicular neoplasm, favor follicular adenoma. See comment. SJ:zach 01/01/20 COMMENT The specimen is sent to [facility] for expert opinion, reviewed by Dr. Gilbert and the above diagnosis is rendered. The complete report is viewable in the patient's EMR. Additional levels on block 12 are also examined. Please make reference to previous specimen ([id number]) right thyroid nodule for cytology with diagnosis of suspicious for follicular neoplasm. Case has been reviewed in consultation with Dr. Hill who concurs with the above diagnosis. IDC:AM MICROSCOPIC DESCRIPTION Slides are reviewed. GROSS DESCRIPTION Received fresh for frozen section consultation labeled with the patient's name is a specimen designated right lobe of thyroid. The specimen consists of a lobe of thyroid measuring 6.5 x 4 x 2.7 cm and weighing 17.6 gm. The isthmic margin of resection is inked in red ink. The remainder of the specimen is inked in black ink. Serial sections reveal a fleshy pink-sellers nodule measuring 4.5 x 2.6 cm. Sleeve Presser Operator sections of nodule is submitted for frozen section consultation (cassettes 1 & 2). The remainder of the tissue is submitted in its entirety as follows: 1 & 2 - frozen section, 3-13 - nodule, totally submitted, 14 & 15 - uninvolved thyroidal parenchymal and isthmic margin of resection. / AM:zach 12/21/19 TC:1 CPT: 63640, 67347, 93317
[2019-12-21] MEDS: Lactated Ringers 1,000 ML 100 ML IV ×3 (06:45→16:05)
--- NOTE | 2019-12-21 10:26 | DCINST_ITS ---
You will use the following diet at home:: No restrictions Your food should be the consistency of: Regular Discharge Activity: Return to Normal Activity, May not drive while taking narcotic pain medications. Call your doctor if your incision/area has: Sudden Increased Bleeding, Swelling at the incision site Call your doctor if you observe: Fever of 101 or Higher, Uncontrolled pain Allergies/Adverse Reactions: Allergies No Known Allergies Allergy (Verified 12/13/19 11:23) Medications to take at Discharge Atorvastatin Calcium [Lipitor] 80 mg PO QHS 06/30/17 Red Yeast Rice 600 mg PO DAILY 11/30/19 Aspirin [Aspirin, Baby] 81 mg PO DAILY@0800 12/13/19 Primary Care Physician: Elvis Cesar DO [Primary Care Provider] - Test Results: Test results from this visit will be discussed in further detail at your follow- up appointment, if applicable. Please Follow Up With: Lnik Pham MD When: 2 weeks
--- NOTE | 2019-12-21 10:27 | OP.PCM_ITS ---
Problem List (1) Right thyroid nodule Status: Chronic Report of Operation Date of Procedure: 12/21/19 Pre-Operative Diagnosis: Dominant right thyroid nodule Post-Operative Diagnosis: Same Surgery/Procedure Performed:: Right hemithyroidectomy with nerve monitoring Description of Surgical Findings:: Issac is a 64-year-old male who presents with a 5 cm right thyroid nodule. Fine-needle aspiration biopsy was performed which showed follicular neoplasm of uncertain significance with surgical resection advised even in the absence of this finding given the risk of missing a malignancy and a nodule of this size with excision advised for definitive evaluation as well as relief of any mass- effect. The risks of COVID exposure in this environment was also discussed and the patient is agreeable proceed spite this risk in the interest of further evaluation of his large thyroid mass. The risks, alternatives, potential complications, and benefits were discussed at length and any questions answered to the patient and/or caregiver's satisfaction. Witnessed informed consent was obtained in the office, and the patient and/or caregiver was agreeable to proceed. Procedure went as follows: The patient was identified in the preoperative holding and brought to the operating room, placed under general anesthesia and intubated with a neuromonitoring tube. The grounding electrodes were then placed on the chest and confirmed to be operational in accordance with the cardiology technologist's directions to allow for recurrent laryngeal nerve monitoring. The neck was then prepped and draped in usual sterile fashion and the planned skin incision was marked 2 finger breadths above the sternal notch with a marking pen. The incisional line was then injected with 1% lidocaine with 100,000 epinephrine for a total of 6 mL. After allowing for vasoconstriction, a 15 blade scalpel was used to make an incision 8 cm in length through the skin and subcutaneous tissues and platysma. A subplatysmal flap was then elevated superiorly and inferiorly to allow for placement of the self-retaining thyroid retractor. The strap muscles were then divided in the midline and beginning on the right side the thyroid lobe dissected in a sub-capsular fashion. A very large dominant nodule within the lobe of the thyroid was encountered. The inferior, middle, and superior thyroid vessels were individually clamped and ligated with a combination of 3-0 silk sutures and vascular clips. The parathyroid glands were identified along the inferior vascular pedicle and preserved. The recurrent laryngeal nerve was also identified and followed to its nerve entry point and the thyroid gland dissected free of its attachments to the trachea at [facility]'s ligament. This was then transected at the isthmus and sent for pathologic evaluation. This again showed a large follicular neoplasm with no obvious malignancy with further evaluation for possible follicular variant pending permanent sections. The wound bed was then irrigated saline solution and examined for sites of bleeding. No significant bleeding was encountered and #7 flat drains were then placed into each tracheoesophageal groove and brought out through separate stab incisions in the neck and secured with 3-0 silk sutures. The strap muscles were then re-approximated in the midline with a running 3-0 Vicryl suture followed by interrupted 3-0 Vicryl sutures to close the platysma and subcutaneous tissues. A 5-0 Monocryl was then used to close the skin followed by Steri-Strips completing the procedure. The patient was then returned to anesthesia, revived and extubated having tolerated the procedure well. Type of Anesthesia:: General Anesthesiologist: Link Jones Special Medications: none Specimen's removed: right thyroid lobe and dominant nodule Drains: #7 flat RENZO Estimated Blood Loss (mL): 50 mL Fluids Replaced: 1100 mL Grafts/Implants Used: none - Complications none - Admit VTE Documentation VTE Present on Admission: No VTE Mechan Device Prophylaxis: SCD's VTE Pharm Prophylaxis ordered?: No
--- NOTE | 2019-12-21 15:19 | CASEMGMT ---
RN CM DEPUTY FIRE CHIEF CM to room to meet with patient for initial transition planning/care coordination assessment. RN GRACIA introduced self and role at [facility]. Pt voices understanding and consents to assessment at this time. Pt resting in bed in no distress at this time. @ bedside. Pt is A/O at this time and answers all questions appropriately. Care providers, pharmacy, and demographics verified/updated at this time. PCP: Dr Elvis Cesar Specialists: Dr Pham--surgeon [facility]erred [facility]acy: [facility] Insurance: [facility] [place]it: Yes Living Will/HPOA: Has both LW and Healthcare POA, who is his , Do. Pt/ made aware these are not on file @ [facility] LNOK: , Do. 2 children. Living Arrangements: Lives w/his in ranch-style home w/3-4 steps to enter. Independent. Works full-time. Transportation: Pt states drives self and states no transportation concerns at this time. also drives. DME: Denies using any DME and denies needs. HHC/SNF: No history of either and no needs identified Pt wishes to return home and states has no concerns with going home at time of discharge. CM to follow for any discharge planning/needs. Pt voices no concerns/needs at this time. Advised pt to ask for CM if any questions/concerns/needs arise. Voices understanding. PLAN: Home Frank COMBS RN, CM
[2019-12-21] MEDS: Acetaminophen 500 MG Tablet PO (16:06)
[2019-12-21] MEDS: Ibuprofen 400 MG Tablet PO (20:24)
[2019-12-22] MEDS: Acetaminophen 500 MG Tablet PO
[2019-12-22] MEDS: Lactated Ringers 1,000 ML 100 ML IV (01:38)
[2019-12-22 05:08] VITALS: BP 107/76; PULSE 99; RESP 16; TEMP 36.7; O2SAT 95
[2019-12-22] MEDS: Ibuprofen 400 MG Tablet PO (05:14)
[2019-12-22 07:56] VITALS: BP 128/79; PULSE 96; RESP 18; TEMP 36.8; O2SAT 98
--- NOTE | 2019-12-22 08:36 | PCM.PN.SRG ---
Subjective: Patient reports he is doing well with no significant pain postoperative day 1 status post right hemithyroidectomy for the large dominant nodule. He denies any perioral numbness or tingling. He denies any hoarseness. Objective: Is well-appearing resting comfortably in bed. The neck incision is clean dry and intact. Drain output has been minimal with 10 cc in the last 8-hour shift. [place] sign is negative. Calcium is noted at 8.0 however on previous testing this is registered in the low range as well. This is consistent with chronically low calcium rather than acute hypocalcemia which should be unlikely in the setting of a hemithyroidectomy with an unexplored left side. - Physical Exam Vitals/I&O's: Vital Signs Temp Pulse Resp BP Pulse Ox 98.3 F 96 18 128/79 H 98 12/22/19 07:56 12/22/19 07:56 12/22/19 07:56 12/22/19 07:56 12/22/19 07:56 Oxygen Delivery Method Room Air Weight: 81.6 kg Body Mass Index (BMI) 25.8 Finger Stick Blood Glucose 94 Intake and Output for Last 24 Hours 12/20/19 12/21/19 12/22/19 23:59 23:59 23:59 Intake Total 1608.33 / 1608.33 1505 / 1505 Output Total Balance 1588.33 / 1588.33 1495 / 1495 General: Alert, Oriented x3, Cooperative HEENT: Atraumatic, PERRLA, EOMI Oral: Moist Mucosa Neck: Supple Lungs: Normal air movement, No rhonchi, No wheeze Cardiovascular: Regular rate, Regular Rhythm Skin: No rashes Psych/Mental Status: Alert and oriented to time, place, person, mood and affect Laboratory Results 12/22/19 06:41: Calcium 8.0 L Current Medications Acetaminophen (Tylenol) 500 mg PO Q4H PRN PRN PRN Reason: Pain Score 1-10/10 Last Admin: 12/22/19 00:00 Dose: 500 mg Documented by: Hydrocodone Bitart/Acetaminophen ([place] 5mg-325mg) 1 tablet PO Q6H PRN PRN PRN Reason: Pain Score 6-10/10 Lactated Ringer's () 1,000 mls @ 100 mls/hr IV .Q10H ESTHELA Last Admin: 12/22/19 01:38 Dose: 100 mls/hr Documented by: Sodium Chloride () 250 mls @ 15 mls/hr IV .[id number] PRN PRN Reason: Saline Flush Sodium Chloride () 250 mls @ 15 mls/hr IV .[id number] PRN PRN Reason: Additional IVPB Infusion Ibuprofen (Motrin) 400 mg PO Q6H PRN PRN PRN Reason: Pain Score 4-10/10 Last Admin: 12/22/19 05:14 Dose: 400 mg Documented by: Ondansetron HCl (Zofran) 4 mg IV Q4H PRN PRN PRN Reason: Nausea Sodium Chloride () 10 - 40 ml IV UD PRN PRN Reason: SALINE FLUSH Medical Necessity - Tobacco Use Smoking Status: Never smoker Tobacco Use: Non-smoker Assessment/Plan All Active Problems Powell's palsy (Acute) Is doing well postoperative day #1 status post right hemithyroidectomy. Drain output is minimal and this was removed at the bedside. Calcium is 8.0 is noted however this is asymptomatic and he is trended on the lower range on previous calcium testing suggesting a chronic state rather than an acute change. Final pathology is pending for the possibility of the follicular variant carcinoma however initial assessment was of a benign adenoma and I expect the surgery to be definitive evaluation of his large right nodule. We will plan for discharge to home today as he is having an uneventful recovery.
[2019-12-22 10:27] VITALS: BP 124/75; PULSE 72; RESP 16; TEMP 37; O2SAT 98
== END 2019-12-22 10:25 | disposition home or self-care (01) | DRG 627 ==
LOC: ACINP 06:02 → MS3 10:45
PROVIDERS: Anesthesiology; Admitting Provider Otolaryngology; PCP Family Medicine; Referring Provider Otolaryngology; Visit Provider Otolaryngology
PROC: 0GTH0ZZ Resection of Right Thyroid Gland Lobe, Open Approach (ICD-10-PCS; principal; 2019-12-21 07:10)
DX: D34 Benign neoplasm of thyroid gland (principal); G51.0 Bell's palsy; E78.00 Pure hypercholesterolemia, unspecified; Z79.82 Long term (current) use of aspirin; Z11.59 Encounter for screening for other viral diseases
CPT/HCPCS: 36415; 82310; 87635; 88307; 88331; 88332; 94799; J7120; J2405; U0003

== ENCOUNTER → 2023-07-22 | Outpatient (CLI) | payer MEDICARE, OTHER, SELFPAY ==
[2023-07-22 10:20] LABS: Absolute Lymphocyte Count 1.43 X10^3/uL (0.83-4.51); Basophil# 0.04 X10^3/uL; Basophil% 0.5 % (0-1); Eosinophil# 0.18 X10^3/uL; Eosinophils% 2.1 % (0-5); Hematocrit 45.6 % (40-54); Hemoglobin 15.7 g/dL (13.0-16.5); Lymphocyte # 1.43 X10^3/ul (0.83-4.51); Lymphocyte % 16.6 % (19-41); Mean Corp Hgb Conc 34.4 g/dL (32-36); Mean Corpuscular Hgb 31.2 pg (27.0-32.0); Mean Corpuscular Volume 90.7 fL (80-94); Mean Platelet Vol. 9.2 fl (6.2-12.0); Monocyte# 0.93 X10^3/uL; Monocyte% 10.8 % (0-10); NRBC Flagged by Analyzer 0 % (0-5); Neutrophil # 6.01 X10^3/uL (2.7-7.7); Neutrophil % 69.7 % (47-70); Platelet Count 246 K/mm3 (150-450); RBC Distribution Width CV 13.5 % (11.6-14.6); RBC Distribution Width SD 44.6 fl (35.1-43.9); Red Blood Count 5.03 M/mm3 (4.6-6.2); White Blood Count 8.6 K/mm3 (4.4-11.0)
[2023-07-22 11:21] LABS: AST(SGOT) 19 U/L (15-37); Alanine Aminotransfer ALT/SGPT 19 U/L (16-61); Albumin, Serum 3.8 g/dL (3.2-5.0); Alkaline Phosphatase 131 U/L (45-117); Anion Gap 6 (5-15); BUN 14 mg/dL (7-18); BUN/Creat Ratio 13.6 RATIO (10-20); Calcium,Total 8.9 mg/dL (8.5-10.1); Chloride 107 mmol/L (98-107); Cholesterol 195 mg/dL (200); Creatinine, Serum 1.03 mg/dL (0.70-1.30); EST Glomerular Filtration Rate 76 mL/min (>60); Est Glom Filt Rate - Afr Amer 92 mL/min (>60); Globulin 3.7 g/dL (2.2-4.2); Glucose 85 mg/dL (74-106); High Density Lipoprotein 61 mg/dL; PSA,Total - Annual Screen 0.89 ng/mL (0.00-4.00); Potassium 3.9 mmol/L (3.5-5.1); Protein, Total 7.5 g/dL (6.4-8.2); Sodium Level 139 mmol/L (136-145); Triglycerides 44 mg/dL; Very Low Density Lipoprotein 9 mg/dL (5-40)
== END | disposition home or self-care (01) ==
LOC: LAB 09:31
PROVIDERS: PCP Family Medicine; Referring Provider Family Medicine; Visit Provider Family Medicine
DX: E78.5 Hyperlipidemia, unspecified (principal); Z12.5 Encounter for screening for malignant neoplasm of prostate; Z51.81 Encounter for therapeutic drug level monitoring
CPT/HCPCS: 36415; 80053; 80061; 84153; 85025; G0103

== ENCOUNTER → 2024-09-26 | Outpatient (CLI) | payer MEDICARE, OTHER, SELFPAY ==
--- NOTE | 2024-09-26 | FLU_PTH ---
PATIENT: ALLEN GARDINER LOC: [facility] U#:[id number] AGE/SX: 68/M ROOM: RE09/26/[address]: Dr. Elvis Cesar DO : 1955 BED: DIS: 09/26/2024 SPEC #: [id number] RECD: 09/27/24 09:00 STATUS: JAROD LOGAN #: [id number] [place]: 09/26/24 00:[address]: Elvis Cesar DEPT: CYTOLOGY RECD BY: Collin Hoffman Tissues: Urine Procedures: Special Stain Group II Surgery Specimen Level IV Cytospin Fluid HEADER OPERATION: Not noted PRE-OP DIAGNOSIS: Other microscopic hematuria TISSUE SUBMITTED: A- Urine for cytology- voided DIAGNOSIS CYTOLOGY A. Urine: * No malignant cells are identified CYTOLOGY STUDY Slides are reviewed. CYTOLOGY GROSS A. Received is 40 ml of yellow-cloudy fluid labeled with the patient's name and and designated per the requisition as urine. Submitted for cytology preparation. Mr 09/27/2024 CPT: 46988
[2024-09-26 13:57] LABS: Cytology, Body Fluid / CSF SEE PATHOLOGY REPORT
[2024-09-26 14:08] LABS: Color, Urine Yellow (Yellow); Glucose, Dipstick Normal (Normal); Ketone-Dipstick Negative (Negative); Leukocyte Esterase-Dipstick Negative /ul (Negative); Nitrite-Dipstick Negative (Negative); Occult Blood-Urine 10 /ul (Negative); Protein-Dipstick Negative (Negative); Urine Bilirubin Dipstick Negative (Negative); Urine Clarity Clear (Clear); Urine Urobilinogen Normal (Normal)
--- OUTSIDE RECORDS SUMMARY | 2024-09-26 21:02 | XMS RPT_ITS | CCD ---
Author Organization [facility] [employer] Care Team Providers Care Food Tray Assembler Name Role Phone KING HOLCOMB Unavailable Unavailable KING HOLCOMB Unavailable Unavailable JARED NGUYEN Unavailable Unavailable [place] Unavailable Unavailable [place] Unavailable Unavailable [place] Unavailable Unavailable Elvis Cesar Referring Unavailable Elvis Cesar Attending Unavailable Elvis Cesar Primary Care Unavailable Medications Current Medications Medication Drug Class(es) Dates Sig (Normalized) Sig (Original) acetaminophen 500 mg oral tablet (1 source) Start: 12-22-2019 take 500 mg by mouth every four hours as needed Acetaminophen Active 500 MG PO EVERY 4 HOURS NEEDED December 22, 2019 12:00am aspirin 81 mg chewable tablet (2 sources) Platelet Aggregation Inhibitor, Nonsteroidal Anti-inflammatory Drug Start: 12-01-2019 End: 12-13-2019 take 81 mg by mouth once daily Aspirin Active 81 MG PO DAILY@0800 December 13, 2019 11:24am atorvastatin 80 mg oral tablet (1 source) HMG-CoA Reductase Inhibitor Start: 06-30-2017 take 80 mg by mouth at bedtime Atorvastatin Active 80 MG PO AT BEDTIME June 30, 2017 1:00am ibuprofen 400 mg oral tablet (1 source) Nonsteroidal Anti-inflammatory Drug Start: 12-22-2019 take 400 mg by mouth every six hours as needed Ibuprofen Active 400 MG PO EVERY 6 HOURS NEEDED December 22, 2019 12:00am red yeast rice 600 mg oral capsule (1 source) Start: 11-30-2019 take 600 mg by mouth once daily Red Yeast Rice Active 600 MG PO DAILY November 30, 2019 12:00am Completed/Discontinued Medications Medication Drug Class(es) Dates Sig (Normalized) Sig (Original) predniSONE 10 mg oral tablet (1 source) Start: 12-01-2019 End: 12-11-2019 Prednisone Discontinued 10 MG PO DAILY 45 10 December 01, 2019 12:00am December 11, 2019 12:02am 60 mg po daily x 5 days, then 50 mg po x1 day, 40 mg po x 1 day, 30 mg po x 1 day, 20 mg po x 1 day, 10 mg po x1 day Problems Problem Classification Problem Date Documented Da te Episodic/Chronic Disorders of lipid metabolism (2 sources) Hyperlipidemia; Translations: [Hyperlipidemia, unspecified] Onset: 07-27-2023 12-21-2019 Chronic Other nervous system disorders (1 source) Powell's palsy; 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 Thyroid disorders (1 source) Thyroid nodule; Translations: [Nontoxic single thyroid nodule] 12-21-2019 Chronic Results Test Name Value Interpretation Reference Range Facility Absolute lymphocyte countOrd ered By: Elvis Arsenio on 07-22-2023 Lymphocytes Auto (Unsp spec) [#/Vol] 1.43 10*3/uL 0.83-4.51 [facility] Automated lymphocyte count a s percentage of total leukocytesOrdered By: Elvis Cesar on 07-22-2023 Lymphocytes/100 WBC Auto (Unsp spec) 16.6 % 19-41 [facility] Basophil percentageOrdered B y: Elvis Arsenio on 07-22-2023 Basophils/100 WBC (Bld) 0.5 % 0-1 [facility] Bilirubin [Mass/Vol] 1.40 mg/dL 0.20-1.00 [facility] Comment on above: For patients on eltr ombopag therapy, use of [employer] TBIL is not recommended. Chloride [Moles/Vol] 107 mmol/L 98-107 [facility] Cholesterol [Mass/Vol] 195 mg/dL <200 [facility] Comment on above: <200 mg/dL Desirable 200-240 mg/dL Borderline >240 mg/dL High Risk Eosinophils/100 WBC (Bld) 2.1 % 0-5 [facility] Glucose [Mass/Vol] 85 mg/dL 74-106 [facility] Hemoglobin (Bld) [Mass/Vol] 15.7 g/dL 13.0-16.5 [facility] Monocytes/100 WBC (Bld) 10.8 % 0-10 [facility] Neutrophils (Bld) [#/Vol] 6.0 10*3/uL 2.0-7.7 [facility] Neutrophils/100 WBC (Bld) 69.7 % 47-70 [facility] Potassium [Moles/Vol] 3.9 mmol/L 3.5-5.1 [facility] Protein [Mass/Vol] 7.5 g/dL 6.4-8.2 [facility] Sodium [Moles/Vol] 139 mmol/L 136-145 [facility] Triglyceride [Mass/Vol] 44 mg/dL <199 [facility] Comment on above: The drugs N-Acetylcy steine and Metamizole may falsely depress this assay.Serum Triglycerides Reference Interval Normal <150 mg/dL Borderline high 150 - 199 mg/dL High 200 - 499 mg/dL Very High > or = 500 mg/dL WBC (Bld) [#/Vol] 8.6 10*3/uL 4.4-11.0 [facility] CBC W/Diff, Automatedon 06-24 Absolute Lymph 1.43 X10 3/uL Normal 0.83-4.51 [facility] Comment on above: Performed By: #### L 501.9910, L500.4100, L100.0100, L500.4050 #### [facility] [address] [place], [address] Absolute Neut 6.0 X10 3/uL Normal 2.0-7.7 [facility] Comment on above: Performed By: #### L 501.9910, L500.4100, L100.0100, L500.4050 #### [facility] [address] [place], [address] Basophils/100 WBC (Bld) 0.5 % Normal 0-1 [facility] Comment on above: Performed By: #### L 501.9910, L500.4100, L100.0100, L500.4050 #### [facility] [address] [place], [address] Eosinophils/100 WBC (Bld) 2.1 % Normal 0-5 [facility] Comment on above: Performed By: #### L 501.9910, L500.4100, L100.0100, L500.4050 #### [facility] [address] [place], [address] Erythrocyte distribution width (RBC) [Ratio] 13.5 % Normal 11.6-14.6 [facility] Comment on above: Performed By: #### L 501.9910, L500.4100, L100.0100, L500.4050 #### [facility] [address] [place], [address] Hematocrit (Bld) [Volume fraction] 45.6 % Normal 40-54 [facility] Comment on above: Performed By: #### L 501.9910, L500.4100, L100.0100, L500.4050 #### [facility] [address] [place], [address] Hemoglobin (Bld) [Mass/Vol] 15.7 g/dL Normal 13.0-16.5 [facility] Comment on above: Performed By: #### L 501.9910, L500.4100, L100.0100, L500.4050 #### [facility] [address] [place], [address] IG% 0.300 Normal 0.0-0.9 [facility] Comment on above: Result Comment: IG% - Immature Granulocytes (promyelocytes, myelocytes and metamyelocytes) > 1% indicates that a LEFT SHIFT is Present. Performed By: #### L 501.9910, L500.4100, L100.0100, L500.4050 #### [facility] [address] [place], [address] Lymphocytes/100 WBC (Bld) 16.6 % Low 19-41 [facility] Comment on above: Performed By: #### L 501.9910, L500.4100, L100.0100, L500.4050 #### [facility] [address] [place], [address] MCH (RBC) [Entitic mass] 31.2 pg Normal 27.0-32.0 [facility] Comment on above: Performed By: #### L 501.9910, L500.4100, L100.0100, L500.4050 #### [facility] [address] [place], [address] MCHC (RBC) [Mass/Vol] 34.4 g/dL Normal 32-36 [facility] Comment on above: Performed By: #### L 501.9910, L500.4100, L100.0100, L500.4050 #### [facility] [address] [place], [address] MCV (RBC) [Entitic vol] 90.7 fL Normal 80-94 [facility] Comment on above: Performed By: #### L 501.9910, L500.4100, L100.0100, L500.4050 #### [facility] [address] [place], [address] Monocytes/100 WBC (Bld) 10.8 % High 0-10 [facility] Comment on above: Performed By: #### L 501.9910, L500.4100, L100.0100, L500.4050 #### [facility] [address] [place], [address] Neutrophils/100 WBC (Bld) 69.7 % Normal 47-70 [facility] Comment on above: Performed By: #### L 501.9910, L500.4100, L100.0100, L500.4050 #### [facility] [address] [place], [address] Nucleated RBC (Bld) [#/Vol] 0 10*3/uL Normal 0-5 [facility] Comment on above: Performed By: #### L 501.9910, L500.4100, L100.0100, L500.4050 #### [facility] [address] [place], [address] Platelet mean volume (Bld) [Entitic vol] 9.2 fL Normal 6.2-12.0 [facility] Comment on above: Performed By: #### L 501.9910, L500.4100, L100.0100, L500.4050 #### [facility] [address] [place], [address] Platelets (Bld) [#/Vol] 246 10*3/uL Normal 150-450 [facility] Comment on above: Performed By: #### L 501.9910, L500.4100, L100.0100, L500.4050 #### [facility] [address] [place], [address] RBC (Bld) [#/Vol] 5.03 10*6/uL Normal 4.6-6.2 [facility] Comment on above: Performed By: #### L 501.9910, L500.4100, L100.0100, L500.4050 #### [facility] [address] [place], [address] RDW SD 44.6 fl High 35.1-43.9 [facility] Comment on above: Performed By: #### L 501.9910, L500.4100, L100.0100, L500.4050 #### [facility] [address] [place], [address] WBC (Bld) [#/Vol] 8.6 10*3/uL Normal 4.4-11.0 [facility] Comment on above: Performed By: #### L 501.9910, L500.4100, L100.0100, L500.4050 #### [facility] [address] [place], [address] Comprehensive Metabolic Prof ilon 07-22-2023 Albumin [Mass/Vol] 3.8 g/dL Normal 3.2-5.0 [facility] Comment on above: Performed By: #### L 501.9910, L500.4100, L100.0100, L500.4050 #### [facility] [address] [place], [address] Albumin/Globulin [Mass ratio] 1.0 {ratio} Normal 0.9-2.4 [facility] Comment on above: Performed By: #### L 501.9910, L500.4100, L100.0100, L500.4050 #### [facility] [address] [place], [address] ALK P 131 U/L High 45-117 [facility] Comment on above: Performed By: #### L 501.9910, L500.4100, L100.0100, L500.4050 #### [facility] [address] [place], [address] ALT [Catalytic activity/Vol] 19 U/L Normal 16-61 [facility] Comment on above: Performed By: #### L 501.9910, L500.4100, L100.0100, L500.4050 #### [facility] [address] [place], [address] AST [Catalytic activity/Vol] 19 U/L Normal 15-37 [facility] Comment on above: Performed By: #### L 501.9910, L500.4100, L100.0100, L500.4050 #### [facility] [address] [place], [address] Bilirubin [Mass/Vol] 1.40 mg/dL High 0.20-1.00 [facility] Comment on above: Result Comment: For patients on eltrombopag therapy, use of [employer] TBIL is not recommended. Performed By: #### L 501.9910, L500.4100, L100.0100, L500.4050 #### [facility] [address] [place], [address] BUN/CRE 13.6 RATIO Normal 10-20 [facility] Comment on above: Performed By: #### L 501.9910, L500.4100, L100.0100, L500.4050 #### [facility] [address] [place], [address] CA,Total 8.9 mg/dL Normal 8.5-10.1 [facility] Comment on above: Performed By: #### L 501.9910, L500.4100, L100.0100, L500.4050 #### [facility] [address] [place], [address] Chloride [Moles/Vol] 107 mmol/L Normal 98-107 [facility] Comment on above: Performed By: #### L 501.9910, L500.4100, L100.0100, L500.4050 #### [facility] [address] [place], [address] CO2 [Moles/Vol] 26.0 mmol/L Normal 21.0-32.0 [facility] Comment on above: Performed By: #### L 501.9910, L500.4100, L100.0100, L500.4050 #### [facility] [address] [place], [address] Creatinine [Mass/Vol] 1.03 mg/dL Normal 0.70-1.30 [facility] Comment on above: Result Comment: The validity of the calculated GFR GFRAA in patients over 70 years has not been determined. Clinical correlation is essential. Performed By: #### L 501.9910, L500.4100, L100.0100, L500.4050 #### [facility] [address] [place], [address] EST GFR - AA 92 mL/min Normal >60 [facility] Comment on above: Result Comment: Afri can [place] GFR Calc Performed By: #### L 501.9910, L500.4100, L100.0100, L500.4050 #### [facility] [address] [place], [address] GAP 6 Normal 5-15 [facility] Comment on above: Performed By: #### L 501.9910, L500.4100, L100.0100, L500.4050 #### [facility] [address] [place], [address] GFR/1.73 sq M.predicted among non-blacks MDRD (S/P/Bld) [Vol rate/Area] 76 mL/min/{1.73_m2} Normal >60 [facility] Comment on above: Result Comment: Non- GFR Calc Performed By: #### L 501.9910, L500.4100, L100.0100, L500.4050 #### [facility] [address] [place], [address] Globulin (S) [Mass/Vol] 3.7 g/dL Normal 2.2-4.2 [facility] Comment on above: Performed By: #### L 501.9910, L500.4100, L100.0100, L500.4050 #### [facility] [address] [place], [address] Glucose [Mass/Vol] 85 mg/dL Normal 74-106 [facility] Comment on above: Performed By: #### L 501.9910, L500.4100, L100.0100, L500.4050 #### [facility] [address] [place], [address] Potassium [Moles/Vol] 3.9 mmol/L Normal 3.5-5.1 [facility] Comment on above: Performed By: #### L 501.9910, L500.4100, L100.0100, L500.4050 #### [facility] [address] [place], [address] Sodium [Moles/Vol] 139 mmol/L Normal 136-145 [facility] Comment on above: Performed By: #### L 501.9910, L500.4100, L100.0100, L500.4050 #### [facility] [address] [place], [address] T PROT 7.5 g/dL Normal 6.4-8.2 [facility] Comment on above: Performed By: #### L 501.9910, L500.4100, L100.0100, L500.4050 #### [facility] [address] [place], [address] Urea nitrogen [Mass/Vol] 14 mg/dL Normal 7-18 [facility] Comment on above: Performed By: #### L 501.9910, L500.4100, L100.0100, L500.4050 #### [facility] [address] [place], [address] Determination of erythrocyte mean corpuscular volume (MCV)Ordered By: Elvis Cesar on 07-22-2023 MCV (RBC) [Entitic vol] 90.7 fL 80-94 [facility] Erythrocyte distribution wid th ratioOrdered By: Elvis Cesar on 07-22-2023 Erythrocyte distribution width (RBC) [Ratio] 13.5 % 11.6-14.6 [facility] Erythrocyte distribution wid th standard deviationOrdered By: Elvis Cesar on 07-22-2023 Erythrocyte distribution width (RBC) [Entitic vol] 44.6 fL 35.1-43.9 [facility] Hematocrit Auto (Bld) [Volum e fraction]Ordered By: Elvis Cesar on 07-22-2023 Hematocrit (Bld) [Volume fraction] 45.6 % 40-54 [facility] Immature granulocytes/100 WB C Auto (Bld)Ordered By: Elvis Cesar on 07-22-2023 Immature granulocytes/100 WBC (Bld) 0.300 % 0.0-0.9 [facility] Comment on above: IG% - Immature Granu locytes (promyelocytes, myelocytes and metamyelocytes) > 1% indicates that a LEFT SHIFT is Present. Laboratory - Chemistry and C hemistry - challengeOrdered By: Elvis Cesar on 07-22-2023 Albumin/Globulin [Mass ratio] 1.0 {ratio} 0.9-2.4 [facility] ALP [Catalytic activity/Vol] 131 U/L 45-117 [facility] ALT [Catalytic activity/Vol] 19 U/L 16-61 [facility] Cholesterol in HDL [Mass/Vol] 61 mg/dL >40 [facility] Comment on above: The drugs N-Acetylcy steine and Metamizole may falsely depress this assay. Reference Range HDL <40 mg/dL Low HDL Cholesterol HDL >or= 60 mg/dL High HDL Cholesterol Cholesterol in LDL [Mass/Vol] 125 mg/dL 0-130 [facility] CO2 [Moles/Vol] 26.0 mmol/L 21.0-32.0 [facility] Globulin (S) [Mass/Vol] 3.7 g/dL 2.2-4.2 [facility] Urea nitrogen/Creatinine [Mass ratio] 13.6 mg/mg 10-20 [facility] Laboratory - Hematology and Cell countsOrdered By: Elvis Cesar on 07-22-2023 MCH (RBC) [Entitic mass] 31.2 pg 27.0-32.0 [facility] MCHC (RBC) [Mass/Vol] 34.4 g/dL 32-36 [facility] Nucleated RBC/100 WBC (Bld) [Ratio] 0 % 0-5 [facility] Platelet mean volume (Bld) [Entitic vol] 9.2 fL 6.2-12.0 [facility] Platelets (Bld) [#/Vol] 246 10*3/uL 150-450 [facility] Lipid Profileon 07-22-2023 Cholesterol [Mass/Vol] 195 mg/dL Normal 200 [facility] Comment on above: Result Comment: <200 mg/dL Desirable 200-240 mg/dL Borderline >240 mg/dL High Risk Performed By: #### L 501.9910, L500.4100, L100.0100, L500.4050 #### [facility] [address] [place], [address] Cholesterol in HDL [Mass/Vol] 61 mg/dL Normal [facility] Comment on above: Result Comment: The drugs N-Acetylcysteine and Metamizole may falsely depress this assay. Reference Range HDL <40 mg/dL Low HDL Cholesterol HDL >or= 60 mg/dL High HDL Cholesterol Performed By: #### L 501.9910, L500.4100, L100.0100, L500.4050 #### [facility] [address] [place], [address] Cholesterol in LDL [Mass/Vol] 125 mg/dL Normal 0-130 [facility] Comment on above: Performed By: #### L 501.9910, L500.4100, L100.0100, L500.4050 #### [facility] [address] [place], [address] Cholesterol in VLDL [Mass/Vol] 9 mg/dL Normal 5-40 [facility] Comment on above: Performed By: #### L 501.9910, L500.4100, L100.0100, L500.4050 #### [facility] [address] [place], [address] Triglyceride [Mass/Vol] 44 mg/dL Normal [facility] Comment on above: Result Comment: The drugs N-Acetylcysteine and Metamizole may falsely depress this assay. Serum Triglycerides Reference Interval Normal <150 mg/dL Borderline high 150 - 199 mg/dL High 200 - 499 mg/dL Very High > or = 500 mg/dL Performed By: #### L 501.9910, L500.4100, L100.0100, L500.4050 #### [facility] [address] [place], [address] No Panel InformationOrdered By: Elvis Cesar on 07-22-2023 Estimated GFR (MDRD) Amer 92 mL/min >60 [facility] Comment on above: GFR Calc Estimated GFR (MDRD) Non-Af Amer 76 mL/min >60 [facility] Comment on above: Non- GFR Calc Prostate Specific Antigen Screen 0.89 ng/mL 0.00-4.00 [facility] Comment on above: This test was perfor med using the TPSA assay method for [employer] chemistry system. Values obtained with differentassay methods cannot be used interchangably.When changing PSA assays in the course of monitoring apatient, additional sequential testing should be carriedout to confirm baseline values. VLDL Cholesterol 9 mg/dL 5-40 [facility] PSA,Total - Annual Screenon 07-22-2023 PSA,TOT SCREEN 0.89 ng/mL Normal 0.00-4.00 [facility] Comment on above: Result Comment: This test was performed using the TPSA assay method for the [employer] chemistry system. Values obtained with different assay methods cannot be used interchangably. When changing PSA assays in the course of monitoring a patient, additional sequential testing should be carried out to confirm baseline values. Performed By: #### L 501.9910, L500.4100, L100.0100, L500.4050 #### [facility] [address] [place], [address] RBC Auto (Bld) [#/Vol]Ordere d By: Elvis Cesar on 07-22-2023 RBC (Bld) [#/Vol] 5.03 10*6/uL 4.6-6.2 [facility] Serum or plasma calcium chase urement (mass/volume)Ordered By: Elvis Cesar on 07-22-2023 Calcium [Mass/Vol] 8.9 mg/dL 8.5-10.1 [facility] Serum or plasma creatinine m easurement (mass/volume)Ordered By: Elvis Cesar on 07-22-2023 Creatinine [Mass/Vol] 1.03 mg/dL 0.70-1.30 [facility] Comment on above: The validity of the calculated GFR & GFRAA in patients over 70 years has not been determined. Clinical correlation is essential. Serum or plasma urea nitroge n measurement (mass/volume)Ordered By: Elvis Cesar on 07-22-2023 Urea nitrogen [Mass/Vol] 14 mg/dL 7-18 [facility] Thin prep Papanicolaou smear with manual screeningOrdered By: Elvis Cesar on 07-22-2023 Thin prep Papanicolaou smear with manual screening 3.8 g/dL 3.2-5.0 [facility] Thin prep Papanicolaou smear with manual screening 19 U/L 15-37 [facility] Thin prep Papanicolaou smear with manual screening 6 5-15 [facility] .Auto Diffon 06-26-2017 Basophils Auto #/vol (Bld) 0.00 10 3/mcL Normal 0.00-0.19 [facility] Comment on above: Performed By: #### C BC, ADIFF, ANEU, BMP, GFR, TROP ####[address] [place], [place] [address] Basophils/100 WBC Auto (Bld) 0.4 % Normal 0.0-2.5 [facility] ([place] Comment on above: Performed By: #### C BC, ADIFF, ANEU, BMP, GFR, TROP ####[address] [place], [place] [address] Eosinophils 0.10 10 3/mcL Normal 0.00-0.40 [facility] ([place]) Comment on above: Performed By: #### C BC, ADIFF, ANEU, BMP, GFR, TROP ####[address] [place], [place] [address] Eosinophils/100 leukocytes 1.6 % Normal 0.0-7.0 [facility] ([place] Comment on above: Performed By: #### C BC, ADIFF, ANEU, BMP, GFR, TROP ####[address] [place], [place] [address] Lymphocytes 1.60 10 3/mcL Normal 0.77-3.85 [facility] ([place]) Comment on above: Performed By: #### C BC, ADIFF, ANEU, BMP, GFR, TROP ####[address] [place], [place] [address] Lymphocytes/100 leukocytes 22.2 % Normal 10.0-50.0 [facility] ([place] Comment on above: Performed By: #### C BC, ADIFF, ANEU, BMP, GFR, TROP ####[address] [place], [place] [address] Monocytes 0.70 10 3/mcL Normal 0.15-1.00 [facility] ([place]) Comment on above: Performed By: #### C BC, ADIFF, ANEU, BMP, GFR, TROP ####[address] [place], [place] [address] Monocytes/100 leukocytes 9.0 % Normal 1.7-13.0 [facility] ([place] Comment on above: Performed By: #### C BC, ADIFF, ANEU, BMP, GFR, TROP ####[address] [place], [place] [address] Neutrophils/100 WBC Auto (Bld) 66.8 % Normal 37.0-80.0 [facility] ([place] Comment on above: Performed By: #### C BC, ADIFF, ANEU, BMP, GFR, TROP ####[address] [place], [place] [address] .GFRon 06-26-2017 eGFR (non-black) mL/min/{1.73_m2} Normal [facility] ([place]) Comment on above: Result Comment: GFR Population mean for , Non- Americans Ages 20-29 = 116 mL/min/1.73 sq.m. Ages 30-39 = 107 mL/min/1.73 sq.m. Ages 40-49 = 99 mL/min/1.73 sq.m. Ages 50-59 = 93 mL/min/1.73 sq.m. Ages 60-69 = 85 mL/min/1.73 sq.m. Ages 70+ = 75 mL/min/1.73 sq.m.Chronic Kidney Disease: Less than 60 mL/min/1.73 square metersEnd Stage Renal Disease: Less than 15 mL/min/1.73 square meters Performed By: #### C BC, ADIFF, ANEU, BMP, GFR, TROP ####[address] [place], [place] [address] eGFR (non-black) 94 ml/min/1.73sqm Normal A [facility] ([place]) Comment on above: Result Comment: GFR Population mean for , Non- Americans Ages 20-29 = 116 mL/min/1.73 sq.m. Ages 30-39 = 107 mL/min/1.73 sq.m. Ages 40-49 = 99 mL/min/1.73 sq.m. Ages 50-59 = 93 mL/min/1.73 sq.m. Ages 60-69 = 85 mL/min/1.73 sq.m. Ages 70+ = 75 mL/min/1.73 sq.m.Chronic Kidney Disease: Less than 60 mL/min/1.73 square metersEnd Stage Renal Disease: Less than 15 mL/min/1.73 square meters Performed By: #### C BC, ADIFF, ANEU, BMP, GFR, TROP ####[address] [place], [place] [address] .NEUABSon 06-26-2017 Neutrophils 5.00 10 3/mcL Normal 2.85-6.16 [facility] ([place]) Comment on above: Performed By: #### C BC, ADIFF, ANEU, BMP, GFR, TROP ####[address] [place], [place] [address] BMPon 06-26-2017 BUN/Creatinine Ratio 14 ratio Normal 7-27 [facility] ([place]) Comment on above: Performed By: #### C BC, ADIFF, ANEU, BMP, GFR, TROP ####[id number] [place], [place] [address] Calcium 9.5 mg/dL Normal 8.4-10.2 [facility] [place] Comment on above: Performed By: #### C BC, ADIFF, ANEU, BMP, GFR, TROP ####[address] [place], [place] [address] Chloride 102 mmol/L Normal 98-107 [facility] [place] Comment on above: Performed By: #### C BC, ADIFF, ANEU, BMP, GFR, TROP ####[address] [place], [place] [address] CO2 28 mmol/L Normal 23-31 [facility] [place] Comment on above: Performed By: #### C BC, ADIFF, ANEU, BMP, GFR, TROP ####[address] [place], [place] [address] Creatinine 1.0 mg/dL Normal 0.6-1.2 [facility] [place] Comment on above: Performed By: #### C BC, ADIFF, ANEU, BMP, GFR, TROP ####[address] [place], [place] [address] Electrolyte Balance 9.0 mEq/L Normal [facility] ([place] Comment on above: Performed By: #### C BC, ADIFF, ANEU, BMP, GFR, TROP ####[address] [place], [place] [address] Glucose mass conc 97 mg/dL Normal 80-115 [facility] [place] Comment on above: Performed By: #### C BC, ADIFF, ANEU, BMP, GFR, TROP ####[address] [place], [place] [address] Potassium molar conc 3.9 mmol/L Normal 3.5-5.1 [facility] ([place] Comment on above: Performed By: #### C BC, ADIFF, ANEU, BMP, GFR, TROP ####[address] [place], [place] [address] Sodium 139 mmol/L Normal 136-146 [facility] [place] Comment on above: Performed By: #### C BC, ADIFF, ANEU, BMP, GFR, TROP ####[address] [place], [place] [address] Urea nitrogen 13.5 mg/dL Normal 7.0-18.0 [facility] ([place]) Comment on above: Performed By: #### C BC, ADIFF, ANEU, BMP, GFR, TROP ####[address] [place], [place] [address] CBCon 06-26-2017 Erythrocyte distribution width Auto Ratio (RBC) 14.1 % Normal 11.5-14.5 [facility] [place] Comment on above: Performed By: #### C BC, ADIFF, ANEU, BMP, GFR, TROP ####[address] [place], [place] [address] Erythrocytes (RBC) 5.26 10 6/mcL Normal 4.04-6.13 [facility] ([place] Comment on above: Performed By: #### C BC, ADIFF, ANEU, BMP, GFR, TROP ####[address] [place] [id number] Hematocrit (HCT) 47.2 % Normal 42.0-52.0 [facility] [place] Comment on above: Performed By: #### C BC, ADIFF, ANEU, BMP, GFR, TROP ####[address] [place] [address] Hemoglobin mass conc (Bld) 16.1 G/dL Normal 14.0-18.0 [facility] [place] Comment on above: Performed By: #### C BC, ADIFF, ANEU, BMP, GFR, TROP ####[address] [place] [id number] MCH 30.6 pg Normal 27.0-31.2 [facility] [place] Comment on above: Performed By: #### C BC, ADIFF, ANEU, BMP, GFR, TROP ####[address] [place], [place] [address] MCHC mass conc (RBC) 34.1 G/dL Normal 31.8-35.4 [facility] ([place] Comment on above: Performed By: #### C BC, ADIFF, ANEU, BMP, GFR, TROP ####[address] [place] [id number] MCV 89.7 fL Normal 80.0-94.0 [facility] [place] Comment on above: Performed By: #### C BC, ADIFF, ANEU, BMP, GFR, TROP ####[address] [place], [place] [address] Platelet mean volume (PMV) 7.5 fL Normal 7.4-10.4 [facility] [place] Comment on above: Performed By: #### C BC, ADIFF, ANEU, BMP, GFR, TROP ####[address] [place], [place] [address] Platelets 233 10 3/mcL Normal 130-400 [facility] ([place] Comment on above: Performed By: #### C BC, ADIFF, ANEU, BMP, GFR, TROP ####[address] [place], [place] [address] WBC (Leukocytes) 7.40 10 3/mcL Normal 4.60-10.80 [facility] ([place] Comment on above: Performed By: #### C BC, ADIFF, ANEU, BMP, GFR, TROP ####[address] [place], [place] [address] [facility] Note on 06-26-2017 [facility] Normal [facility] [place] Pat Eduon 06-26-2017 Pat Edu Normal [facility] Patient Summary Documentson 06-26-2017 Patient Summary Documents Normal [facility] TROPon 06-26-2017 Troponin I.cardiac mass conc ng/mL Normal 0.00-0.30 [facility] [place] Comment on above: Result Comment: Belo w measuring range>=0.30 Consistent with cardiac damage, increased clinical risk and possibility of myocardial infarction. Serial measurements, clinical history, appropriate symptoms and/or ECG changes may help assess possibility of [place].*Other non-acute coronary syndrome conditions such as CHF, myocarditis, pulmonary emboli, sepsis and cardiac surgery could result in myocardial damage and increased troponin levels. Performed By: #### L IPID, CMP, GFR ####[address] [place], [place] [address] Troponin I.cardiac mass conc ng/mL Normal 0.00-0.30 [facility] [place] Comment on above: Result Comment: >=0. 30 Consistent with cardiac damage, increased clinical risk and possibility of myocardial infarction. Serial measurements, clinical history, appropriate symptoms and/or ECG changes may help assess possibility of [place].*Other non-acute coronary syndrome conditions such as CHF, myocarditis, pulmonary emboli, sepsis and cardiac surgery could result in myocardial damage and increased troponin levels. Performed By: #### C BC, ADIFF, ANEU, BMP, GFR, TROP ####[address] [place], [place] [address] XR CHEST 1 VIEWon 06-26-2017 XR CHEST 1 VIEW ORIGINALPortable Chest X-ray Clinical Statement: chest pain Comparison: None No focal consolidation, congestion, pleural effusion, or pneumothorax is seen. The cardiomediastinal silhouette and hilar contours are unremarkable. IMPRESSION: No acute process. Interpreted By: Jefferson Madden DOPreliminary Report By: Jefferson Madden DOElectronically Signed By: Jefferson Madden DO Dictated Date: 06/26/2017 10:54:37 AM Prelim Date: 06/26/2017 10:54:37 AM Sign Date: 06/26/2017 10:55:26 AM Normal [facility] [place]) .GFRon 03-12-2017 eGFR (non-black) mL/min/{1.73_m2} Normal [facility] ([place]) Comment on above: Result Comment: GFR Population mean for , Non- Americans Ages 20-29 = 116 mL/min/1.73 sq.m. Ages 30-39 = 107 mL/min/1.73 sq.m. Ages 40-49 = 99 mL/min/1.73 sq.m. Ages 50-59 = 93 mL/min/1.73 sq.m. Ages 60-69 = 85 mL/min/1.73 sq.m. Ages 70+ = 75 mL/min/1.73 sq.m.Chronic Kidney Disease: Less than 60 mL/min/1.73 square metersEnd Stage Renal Disease: Less than 15 mL/min/1.73 square meters Performed By: #### L IPID, CMP, GFR ####[address] [place], [place] [address] eGFR (non-black) 93 ml/min/1.73sqm Normal A [facility] ([place]) Comment on above: Result Comment: GFR Population mean for , Non- Americans Ages 20-29 = 116 mL/min/1.73 sq.m. Ages 30-39 = 107 mL/min/1.73 sq.m. Ages 40-49 = 99 mL/min/1.73 sq.m. Ages 50-59 = 93 mL/min/1.73 sq.m. Ages 60-69 = 85 mL/min/1.73 sq.m. Ages 70+ = 75 mL/min/1.73 sq.m.Chronic Kidney Disease: Less than 60 mL/min/1.73 square metersEnd Stage Renal Disease: Less than 15 mL/min/1.73 square meters Performed By: #### L IPID, CMP, GFR ####[address] [place], [place] [address] CMPon 03-12-2017 Alanine aminotransferase (ALT) 19 U/L Normal 10-35 [facility] ([place]) Comment on above: Performed By: #### L IPID, CMP, GFR ####[address] [place], [place] [address] Albumin 4.5 G/dL Normal 3.4-4.8 [facility] ([place] Comment on above: Performed By: #### L IPID, CMP, GFR ####[address] [place], [place] [address] Albumin/Globulin Ratio 1.9 {ratio} Normal 1.1-2.5 [facility] ([place]) Comment on above: Performed By: #### L IPID, CMP, GFR ####[address] [place], [place] [address] Alk Phos 123 IU/L Normal 40-135 [facility] ([place] Comment on above: Performed By: #### L IPID, CMP, GFR ####[address] [place], [place] [address] Aspartate aminotransferase (AST) 21 U/L Normal 10-40 [facility] ([place]) Comment on above: Performed By: #### L IPID, CMP, GFR ####[address] [place], [place] [address] Bili Total 0.8 mg/dL Normal 0.2-1.0 [facility] ([place] Comment on above: Performed By: #### L IPID, CMP, GFR ####[address] [place], [place] [address] BUN/Creatinine Ratio 10 ratio Normal 7-27 [facility] ([place]) Comment on above: Performed By: #### L IPID, CMP, GFR ####[address] [place], [place] [address] Calcium 9.3 mg/dL Normal 8.4-10.2 [facility] ([place] Comment on above: Performed By: #### L IPID, CMP, GFR ####[address] [place], [place] [address] Chloride 105 mmol/L Normal 98-107 [facility] ([place] Comment on above: Performed By: #### L IPID, CMP, GFR ####[address] [place], [place] [address] CO2 27 mmol/L Normal 23-31 [facility] [place] Comment on above: Performed By: #### L IPID, CMP, GFR ####[address] [place], [place] [address] Creatinine 1.0 mg/dL Normal 0.6-1.2 [facility] ([place] Comment on above: Performed By: #### L IPID, CMP, GFR ####[address] [place], [place] [address] Electrolyte Balance 9.0 mEq/L Normal [facility] ([place]) Comment on above: Performed By: #### L IPID, CMP, GFR ####[address] [place], [place] [address] Globulin 2.4 G/dL Normal [facility] ([place] Comment on above: Performed By: #### L IPID, CMP, GFR ####[address] [place], [place] [address] Glucose mass conc 80 mg/dL Normal 80-115 [facility] [place] Comment on above: Performed By: #### L IPID, CMP, GFR ####[address] [place], [place] [address] Potassium molar conc 4.3 mmol/L Normal 3.5-5.1 [facility] ([place]) Comment on above: Performed By: #### L IPID, CMP, GFR ####[address] [place], [place] [address] Protein 6.9 G/dL Normal 6.0-8.3 [facility] ([place] Comment on above: Performed By: #### L IPID, CMP, GFR ####[address] [place], [place] [address] Sodium 141 mmol/L Normal 136-146 [facility] ([place] Comment on above: Performed By: #### L IPID, CMP, GFR ####[address] [place], [place] [address] Urea nitrogen 9.6 mg/dL Normal 7.0-18.0 [facility] ([place]) Comment on above: Performed By: #### L IPID, CMP, GFR ####[address] [place], [place] [address] LIPIDon 03-12-2017 Cholesterol 195 mg/dL Normal 131-200 [facility] ([place]) Comment on above: Result Comment: Chol esterol Reference Interval:Less than 200 [id number] Borderline high [id number] and above High risk Performed By: #### L IPID, CMP, GFR ####[address] [place], [place] [address] HDL Cholesterol 63 mg/dL Normal 35-90 [facility] ([place]) Comment on above: Result Comment: HDL Reference Interval:Less than 40 Low - high risk60 or above Optimal/lowers risk Performed By: #### L IPID, CMP, GFR ####[address] [place], [place] [address] LDL Cholesterol 119 mg/dL Normal 0-130 [facility] ([place]) Comment on above: Result Comment: LDL is a calculated result and requires a 12- hr fast.LDL Reference Interval:Less than 100 [id number] Near or above [id number] Borderline high [id number] High [id number] and above Very high risk Performed By: #### L IPID, CMP, GFR ####[address] [place], [place] [address] Triglyceride 63 mg/dL Normal 40-150 [facility] ([place]) Comment on above: Result Comment: Trig lyceride Reference Interval:Less than 150 [id number] Borderline high [id number] High [id number] or higher Very high risk Performed By: #### L IPID, CMP, GFR ####[address] [place], [place] [address] Encounters Encounter Date Encounter Type Care Provider Facility Start: 07-22-2023 End: 07-22-2023 ambulatory Elvis [facility] Work Phone: Start: 07-22-2023 End: 07-22-2023 Patient encounter procedure [facility] Work Phone: Start: 07-04-2017 Ambulatory [facility] [place] Fac ility:B Start: 06-26-2017 End: 06-26-2017 Emergency department patient visit JARED NGUYEN Facility:B Start: 03-12-2017 End: 03-13-2017 Ambulatory [place] Facility:[facility] Payers Date Payer Category Payer Medicare [id number] 2022 Unknown [id number] 56 [id number] 2017 Self-pay 2017 Unknown [id number] Unknown [id number] Social History Date Type Detail Facility Start: 12-13-2019 Tobacco smoking status NHIS Unknown if ever smoked [facility] Start: 11-30-2019 None [facility] Start: 11-30-2019 Spouse/ Signif icant Other [facility] Start: 12-13-2019 Non-smoker [facility] Start: 1955 Sex Assigned At Male W [facility] Medical Equipment Procedure Code Equipment Code Equipment Origin al Text Equipment Identifier Dates Thyroidectomy SUTURE,LIGA CLIP SM LT-100 [facility] Start: 12-21-2019 Thyroidectomy SUTURE,LIGA CLIP SM LT-100 [facility] Start: 12-21-2019 Evaluation note Note Date & Type Note Facility Evaluation note No assessment information availa rishi [facility] Work Phone: Summary Purpose Family History No Family History Records Found Relationship Condition Age at Onset Recorded Date/T solis Unknown Family History?COPD Unknown November 242019 11:24am Family History?High Cholesterol Unknown December 13, 2019 11:24am Family History?No pe rtinent history Unknown July 01, 2017 12:56am Advance Directives No Advanced Directives Records Found Advance Directive Response Recorded Date/ Time Living Will Yes December 21 0 2:22am Power of Elevator Builder Yes December 21 020 2:22am Additional Source Comments (unrecognized sect ion and content) No Status Records FoundNo Status Records Found INFORMATION SOURCE (unrecogn ized section and content) DATE CREATED AUTHOR 10/12/2017 [facility] ([place]) DATE CREATED AUTHOR AUTHOR'S ORGANIZ ATION 07/28/2023 [facility] Care Teams (unrecognized sec tion and content) Team Status: Active Member Role Status Dates Dr. Elvis Cesar DO Family Provider Active Dr. Elvis Cesar , DO Primary Care Provider Active Team Status: Inactive Member Role Status Dates Dr. Elvis Cesar , DO Primary Care Prov ider, Attending Provider, Referring Provider Active Goals (unrecognized section and content) Goals may be documented in a n alternate section FOR RECORDS PERTAINING TO PATIENTS WHO ARE OR HAVE BEEN ENROLLED IN A CHEMICAL DEPENDENCY/SUBSTANCEABUSE PROGRAM, SOME INFORMATION MAY BE OMITTED. This clinical summary was aggregated from multiple sources. Caution should be exercised in using it in the provision of clinical care. This summary normalizes information from multiple sources, and as a consequence, information in this document may materially change the coding, format and clinical context of patient data. In addition, data may be omitted in some cases. CLINICAL DECISIONS SHOULD BE BASED ON THE PRIMARY CLINICAL RECORDS. [facility]. provides no warranty or guarantee of the accuracy or completeness of information in this document.
== END | disposition home or self-care (01) ==
LOC: LABSPEC 12:22
PROVIDERS: PCP Family Medicine; Referring Provider Family Medicine; Visit Provider Family Medicine
DX: R31.29 Other microscopic hematuria (principal)
CPT/HCPCS: 81002; 88108; 88305; 88313

== ENCOUNTER → 2025-03-22 | Outpatient (CLI) | payer MEDICARE, OTHER, SELFPAY ==
--- OUTSIDE RECORDS SUMMARY | 2025-03-22 09:56 | XMS RPT_ITS | CCD ---
Author Organization [facility] CliniSypr Care Team Providers Care Public Bath Attendant Name Role Phone KING HOLCOMB Unavailable Unavailable KING HOLCOMB Unavailable Unavailable JARED NGUYEN Unavailable Unavailable KING HOLCOMB Unavailable Unavailable KING HOLCOMB Unavailable Unavailable KING HOLCOMB Unavailable Unavailable Dr. Elvis Cesar DO Primary Care Provider Dr. Elvis Cesar DO Attending Provider [phone] Dr. Elvis Cesar DO Referring Provider [phone] Elvis Cesar Referring Unavailable Elvis Cesar Attending Unavailable Elvis Cesar Primary Care Unavailable Medications Current Medications Medication Drug Class(es) Dates Sig (Normalized) Sig (Original) acetaminophen 500 mg oral tablet (2 sources) Start: 12-22-2019 take 1 tablet by mouth every four hours as needed for pain Acetaminophen 500 MG tablet Active 500 mg PO EVERY 4 HOURS NEEDED as needed for Pain Score 1-02/01December 22, 2019 12:00am aspirin 81 mg chewable tablet (4 sources) Platelet Aggregation Inhibitor, Nonsteroidal Anti-inflammatory Drug Start: 12-01-2019 End: 12-13-2019 take 1 tablet by mouth once daily Aspirin 81 MG tablet,chewable Active 81 mg PO DAILY@0800 December 13, 2019 11:24am atorvastatin 80 mg oral tablet (2 sources) HMG-CoA Reductase Inhibitor Start: 06-30-2017 take 1 tablet by mouth at bedtime Atorvastatin 80 MG tablet Active 80 mg PO AT BEDTIME June 30, 2017 1:00am ibuprofen 400 mg oral tablet (2 sources) Nonsteroidal Anti-inflammatory Drug Start: 12-22-2019 take 1 tablet by mouth every six hours as needed for pain Ibuprofen 400 MG tablet Active 400 mg PO EVERY 6 HOURS NEEDED as needed for Pain Score 4-02/01December 22, 2019 12:00am red yeast rice 600 mg oral capsule (2 sources) Start: 11-30-2019 take 1 capsule by mouth once daily Red Yeast Rice 600 MG capsule Active 600 mg PO DAILY November 30, 2019 12:00am Completed/Discontinued Medications Medication Drug Class(es) Dates Sig (Normalized) Sig (Original) predniSONE 10 mg oral tablet (2 sources) Start: 12-01-2019 End: 12-11-2019 Prednisone 10 MG tablet Discontinued 10 mg PO DAILY 45 10 December 01, 2019 12:00am December 10, 2019 12:00am December 11, 2019 12:02am 60 mg po daily x 5 days, then 50 mg po x1 day, 40 mg po x 1 day, 30 mg po x 1 day, 20 mg po x 1 day, 10 mg po x1 day Problems Problem Classification Problem Date Documented Da te Episodic/Chronic Disorders of lipid metabolism (2 sources) Hyperlipidemia; Translations: [Hyperlipidemia, unspecified] 12-21-2019 Chronic Genitourinary symptoms and ill-defined conditions (1 source) Other microscopic hematuria; Translations: [Other microscopic hematuria] Onset: 10-01-2024 Episodic Other nervous system disorders (2 sources) Powell's palsy; 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 Thyroid disorders (2 sources) Thyroid nodule; Translations: [Nontoxic single thyroid nodule] 12-21-2019 Chronic Results Test Name Value Interpretation Reference Range Facility Non-gynecologic cytology rep ortOrdered By: Christina Elizabeth on 10-01-2024 Study report [facility] Bilirubin Test strip Ql (U)O rdered By: Elvis Cesar on 09-26-2024 Bilirubin Ql (U) Negative Negative [facility] Cytology, Body Fluid / CSFon 09-26-2024 CYTOLOGY,BF/CSF SEE PATHOLOGY REPORT Normal [facility] Comment on above: Order Comment: URINE Result Comment: Spec imen submitted to Anatomical Pathology Department for testing. Performed By: #### L 350.1000, L400.2010 #### [facility] [address] [place], [place], [id number] Ketones Test strip Ql (U)Ord ered By: Elvis Cesar on 09-26-2024 Ketones Ql (U) Negative Negative [facility] Nitrite Test strip Ql (U)Ord ered By: Elvis Cesar on 09-26-2024 Nitrite Ql (U) Negative Negative [facility] Protein Test strip Ql (U)Ord ered By: Elvis Cesar on 09-26-2024 Protein Ql (U) Negative Negative [facility] Special Stain Group IIon Special Stain Group II ---- -------- Patient Age/Sex Location Account Attending Physician -------- 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 Elvis Cesar DO -------- Specimen: [id number] Received: 09/27/24 Status: JAROD Keller Num: [id number] Spec Type: Fluid Subm Dr: Dr. Elvis Cesar, HEADER OPERATION: Not noted PRE-OP DIAGNOSIS: Other microscopic hematuria TISSUE SUBMITTED: A- Urine for cytology- voided -------- DIAGNOSIS CYTOLOGY A. Urine: * No malignant cells are identified CYTOLOGY STUDY Slides are reviewed. CYTOLOGY GROSS A. Received is 40 ml of yellow-cloudy fluid labeled with the patient's name and and designated per the requisition as urine. Submitted for cytology preparation. Mr 09/27/2024 CPT: 03154 Signed (signature on file) Dr. Christina Elizabeth, DO 10/01/24 1125 -------- Normal [facility] Comment on above: Performed By: #### P SSII #### [facility] [address] [place], [address] Urinalysis, Routine (Dipstic k)on 09-26-2024 BILIRUBIN URINE Negative Normal Negative [facility] Comment on above: Order Comment: Urine , Random Performed By: #### L 350.1000, L400 #### [facility] [address] [place], [address] Clarity (U) Clear Normal Clear [facility] Comment on above: Order Comment: Urine , Random Performed By: #### L 350.1000, L400.2010 #### [facility] [address] [place], [address] Color (U) Yellow Normal Yellow [facility] Comment on above: Order Comment: Urine , Random Performed By: #### L 350.1000, L400 #### [facility] [address] [place], [address] GLUCOSE, UR Normal Normal Normal [facility] Comment on above: Order Comment: Urine , Random Performed By: #### L 350.1000, L4 #### [facility] [address] [place], [address] KETONE UR Negative Normal Negative [facility] Comment on above: Order Comment: Urine , Random Performed By: #### L 350.1000, L4 #### [facility] [address] [place], [address] LEUK ESTERASE Negative Normal Negative [facility] Comment on above: Order Comment: Urine , Random Performed By: #### L 350.1000, L4 #### [facility] [address] [place], [address] Nitrite Ql (U) Negative Normal Negative [facility] Comment on above: Order Comment: Urine , Random Performed By: #### L 350.1000, L4 #### [facility] [address] [place], [address] OCCULT BLOOD-UR 10 /ul Abnormal Negative [facility] Comment on above: Order Comment: Urine , Random Performed By: #### L 350.1000, L4 #### [facility] [address] [place], [address] pH UR 7.0 Normal 5.0 - 8.0 [facility] Comment on above: Order Comment: Urine , Random Performed By: #### L 350.1000, L4 #### [facility] [address] [place], [address] PROT DIPSTX Negative Normal Negative [facility] Comment on above: Order Comment: Urine , Random Performed By: #### L 350.1000, L4 #### [facility] [address] [place], [address] SP.GR. DIPSTX 1.010 Normal 1.002-1.030 [facility] Comment on above: Order Comment: Urine , Random Performed By: #### L 350.1000, L400.2010 #### [facility] [address] [place], [place], [address] UROBILI Normal Normal Normal [facility] Comment on above: Order Comment: Urine , Random Performed By: #### L 350.1000, L400.2010 #### [facility] [address] [place], [place], [id number] Urine clarityOrdered By: Uzma Cesar on 09-26-2024 Clarity (U) Clear Clear [facility] Urine color determinationOrd ered By: Elvis Cesar on 09-26-2024 Color (U) Yellow Yellow [facility] Urine glucose detectionOrder ed By: Elvis Cesar on 09-26-2024 Glucose Ql (U) Normal mg/dl Normal [facility] Urine leukocyte esterase det ection by dipstickOrdered By: Elvis Cesar on 09-26-2024 Leukocyte esterase Test strip Ql (U) Negative Negative [facility] Urine pHOrdered By: Elvis mills on 09-26-2024 pH (U) 7.0 [pH] 5.0 - 8.0 [facility] Urine specific gravity measu rementOrdered By: Elvis Cesar on 09-26-2024 Specific gravity (U) [Rel density] 1.010 1.002-1.030 [facility] Urine urobilinogen measureme ntOrdered By: Elvis Cesar on 09-26-2024 Urobilinogen Ql (U) Normal mg/dl Normal [facility] Absolute lymphocyte countOrd ered By: Elvis Cesar on 07-22-2023 Lymphocytes Auto (Unsp spec) [#/Vol] 1.43 10*3/uL 0.83-4.51 [facility] Automated lymphocyte count a s percentage of total leukocytesOrdered By: Elvis Cesar on 07-22-2023 Lymphocytes/100 WBC Auto (Unsp spec) 16.6 % 19-41 [facility] Basophil percentageOrdered B y: Elvis Cesar on 07-22-2023 Basophils/100 WBC (Bld) 0.5 % 0-1 [facility] Bilirubin [Mass/Vol] 1.40 mg/dL 0.20-1.00 [facility] Comment on above: For patients on eltr ombopag therapy, use of Dimension [place] TBIL is not recommended. Chloride [Moles/Vol] 107 mmol/L 98-107 [facility] Cholesterol [Mass/Vol] 195 mg/dL <200 [facility] Comment on above: <200 mg/dL Desirable 200-240 mg/dL Borderline >240 mg/dL High Risk Eosinophils/100 WBC (Bld) 2.1 % 0-5 [facility] Glucose [Mass/Vol] 85 mg/dL 74-106 [facility] Hemoglobin (Bld) [Mass/Vol] 15.7 g/dL 13.0-16.5 [facility] Monocytes/100 WBC (Bld) 10.8 % 0-10 [facility] Neutrophils (Bld) [#/Vol] 6.0 10*3/uL 2.0-7.7 [facility] Neutrophils/100 WBC (Bld) 69.7 % 47-70 [facility] Potassium [Moles/Vol] 3.9 mmol/L 3.5-5.1 [facility] Protein [Mass/Vol] 7.5 g/dL 6.4-8.2 [facility] Sodium [Moles/Vol] 139 mmol/L 136-145 [facility] Triglyceride [Mass/Vol] 44 mg/dL <199 [facility] Comment on above: The drugs N-Acetylcy steine and Metamizole may falsely depress this assay.Serum Triglycerides Reference Interval Normal <150 mg/dL Borderline high 150 - 199 mg/dL High 200 - 499 mg/dL Very High > or = 500 mg/dL WBC (Bld) [#/Vol] 8.6 10*3/uL 4.4-11.0 [facility] Determination of erythrocyte mean corpuscular volume (MCV)Ordered By: Elvis Cesar on 07-22-2023 MCV (RBC) [Entitic vol] 90.7 fL 80-94 [facility] Erythrocyte distribution wid th ratioOrdered By: Elvis Cesar on 07-22-2023 Erythrocyte distribution width (RBC) [Ratio] 13.5 % 11.6-14.6 [facility] Erythrocyte distribution wid th standard deviationOrdered By: Elvis Cesar on 07-22-2023 Erythrocyte distribution width (RBC) [Entitic vol] 44.6 fL 35.1-43.9 [facility] Hematocrit Auto (Bld) [Volum e fraction]Ordered By: Elvis Cesar on 07-22-2023 Hematocrit (Bld) [Volume fraction] 45.6 % 40-54 [facility] Immature granulocytes/100 WB C Auto (Bld)Ordered By: Elvis Cesar on 07-22-2023 Immature granulocytes/100 WBC (Bld) 0.300 % 0.0-0.9 [facility] Comment on above: IG% - Immature Granu locytes (promyelocytes, myelocytes and metamyelocytes) > 1% indicates that a LEFT SHIFT is Present. Laboratory - Chemistry and C hemistry - challengeOrdered By: Elvis Cesar on 07-22-2023 Albumin/Globulin [Mass ratio] 1.0 {ratio} 0.9-2.4 [facility] ALP [Catalytic activity/Vol] 131 U/L 45-117 [facility] ALT [Catalytic activity/Vol] 19 U/L 16-61 [facility] Cholesterol in HDL [Mass/Vol] 61 mg/dL >40 [facility] Comment on above: The drugs N-Acetylcy steine and Metamizole may falsely depress this assay. Reference Range HDL <40 mg/dL Low HDL Cholesterol HDL >or= 60 mg/dL High HDL Cholesterol Cholesterol in LDL [Mass/Vol] 125 mg/dL 0-130 [facility] CO2 [Moles/Vol] 26.0 mmol/L 21.0-32.0 [facility] Globulin (S) [Mass/Vol] 3.7 g/dL 2.2-4.2 [facility] Urea nitrogen/Creatinine [Mass ratio] 13.6 mg/mg 10-20 [facility] Laboratory - Hematology and Cell countsOrdered By: Elvis Cesar on 07-22-2023 MCH (RBC) [Entitic mass] 31.2 pg 27.0-32.0 [facility] MCHC (RBC) [Mass/Vol] 34.4 g/dL 32-36 [facility] Nucleated RBC/100 WBC (Bld) [Ratio] 0 % 0-5 [facility] Platelet mean volume (Bld) [Entitic vol] 9.2 fL 6.2-12.0 [facility] Platelets (Bld) [#/Vol] 246 10*3/uL 150-450 [facility] No Panel InformationOrdered By: Elvis Cesar on 07-22-2023 Estimated GFR (MDRD) Amer 92 mL/min >60 [facility] Comment on above: GFR Calc Estimated GFR (MDRD) Non-Af Amer 76 mL/min >60 [facility] Comment on above: Non- GFR Calc Prostate Specific Antigen Screen 0.89 ng/mL 0.00-4.00 [facility] Comment on above: This test was perfor med using the TPSA assay method for theHello[employer] chemistry system. Values obtained with differentassay methods cannot be used interchangably.When changing PSA assays in the course of monitoring apatient, additional sequential testing should be carriedout to confirm baseline values. VLDL Cholesterol 9 mg/dL 5-40 [facility] RBC Auto (Bld) [#/Vol]Ordere d By: Elvis Cesar on 07-22-2023 RBC (Bld) [#/Vol] 5.03 10*6/uL 4.6-6.2 [facility] Serum or plasma calcium chase urement (mass/volume)Ordered By: Elvis Cesar on 07-22-2023 Calcium [Mass/Vol] 8.9 mg/dL 8.5-10.1 [facility] Serum or plasma creatinine m easurement (mass/volume)Ordered By: Elvis Cesar on 07-22-2023 Creatinine [Mass/Vol] 1.03 mg/dL 0.70-1.30 [facility] Comment on above: The validity of the calculated GFR & GFRAA in patients over 70 years has not been determined. Clinical correlation is essential. Serum or plasma urea nitroge n measurement (mass/volume)Ordered By: Elvis Cesar on 07-22-2023 Urea nitrogen [Mass/Vol] 14 mg/dL 7-18 [facility] Thin prep Papanicolaou smear with manual screeningOrdered By: Elvis Cesar on 07-22-2023 Thin prep Papanicolaou smear with manual screening 3.8 g/dL 3.2-5.0 [facility] Thin prep Papanicolaou smear with manual screening 19 U/L 15-37 [facility] Thin prep Papanicolaou smear with manual screening 6 5-15 [facility] .Auto Diffon 06-26-2017 Basophils Auto #/vol (Bld) 0.00 10 3/mcL Normal 0.00-0.19 [facility] ([place]) Comment on above: Performed By: #### C BC, ADIFF, ANEU, BMP, GFR, TROP ####[address] [place], [place] [address] Basophils/100 WBC Auto (Bld) 0.4 % Normal 0.0-2.5 [facility] ([place]) Comment on above: Performed By: #### C BC, ADIFF, ANEU, BMP, GFR, TROP ####[address] [place], [place] [address] Eosinophils 0.10 10 3/mcL Normal 0.00-0.40 [facility] ([place]) Comment on above: Performed By: #### C BC, ADIFF, ANEU, BMP, GFR, TROP ####[address] [place], [place] [address] Eosinophils/100 leukocytes 1.6 % Normal 0.0-7.0 [facility] ([place]) Comment on above: Performed By: #### C BC, ADIFF, ANEU, BMP, GFR, TROP ####[address] [place], [place] [address] Lymphocytes 1.60 10 3/mcL Normal 0.77-3.85 [facility] ([place]) Comment on above: Performed By: #### C BC, ADIFF, ANEU, BMP, GFR, TROP ####[address] [place], [place] [address] Lymphocytes/100 leukocytes 22.2 % Normal 10.0-50.0 [facility] ([place]) Comment on above: Performed By: #### C BC, ADIFF, ANEU, BMP, GFR, TROP ####[address] [place], [place] [address] Monocytes 0.70 10 3/mcL Normal 0.15-1.00 [facility] ([place]) Comment on above: Performed By: #### C BC, ADIFF, ANEU, BMP, GFR, TROP ####[address] [place], [place] [address] Monocytes/100 leukocytes 9.0 % Normal 1.7-13.0 [facility] ([place]) Comment on above: Performed By: #### C BC, ADIFF, ANEU, BMP, GFR, TROP ####[address] [place], [place] [address] Neutrophils/100 WBC Auto (Bld) 66.8 % Normal 37.0-80.0 [facility] ([place]) Comment on above: Performed By: #### C BC, ADIFF, ANEU, BMP, GFR, TROP ####[address] [place], [place] [address] .GFRon 06-26-2017 eGFR (non-black) mL/min/{1.73_m2} Normal [facility] ([place]) Comment on above: Result Comment: GFR Population [...] BC, ADIFF, ANEU, BMP, GFR, TROP ####[address] [place], [place] [address] eGFR (non-black) 94 ml/min/1.73sqm Normal [facility] ([place]) Comment on above: Result Comment: GFR Population [...] ADIFF, ANEU, BMP, GFR, TROP ####[address] [place], [place] [address] .NEUABSon 06-26-2017 Neutrophils 5.00 10 3/mcL Normal 2.85-6.16 [facility] ([place]) Comment on above: Performed By: #### C BC, ADIFF, ANEU, BMP, GFR, TROP ####[address] [place], [place] [address] BMPon 06-26-2017 BUN/Creatinine Ratio 14 ratio Normal 7-27 [facility] ([place]) Comment on above: Performed By: #### C BC, ADIFF, ANEU, BMP, GFR, TROP ####[address] [place], [place] [address] Calcium 9.5 mg/dL Normal 8.4-10.2 [facility] ([place]) Comment on above: Performed By: #### C BC, ADIFF, ANEU, BMP, GFR, TROP ####[address] [place], [place] [address] Chloride 102 mmol/L Normal 98-107 [facility] ([place]) Comment on above: Performed By: #### C BC, ADIFF, ANEU, BMP, GFR, TROP ####[address] [place], [place] [address] CO2 28 mmol/L Normal 23-31 [facility] ([place]) Comment on above: Performed By: #### C BC, ADIFF, ANEU, BMP, GFR, TROP ####[address] [place], [place] [address] Creatinine 1.0 mg/dL Normal 0.6-1.2 [facility] ([place]) Comment on above: Performed By: #### C BC, ADIFF, ANEU, BMP, GFR, TROP ####[address] [place], [place] [address] Electrolyte Balance 9.0 mEq/L Normal [facility] ([place]) Comment on above: Performed By: #### C BC, ADIFF, ANEU, BMP, GFR, TROP ####[address] [place], [place] [address] Glucose mass conc 97 mg/dL Normal 80-115 [facility] ([place]) Comment on above: Performed By: #### C BC, ADIFF, ANEU, BMP, GFR, TROP ####[address] [place], [place] [address] Potassium molar conc 3.9 mmol/L Normal 3.5-5.1 [facility] ([place]) Comment on above: Performed By: #### C BC, ADIFF, ANEU, BMP, GFR, TROP ####[address] [place], [place] [address] Sodium 139 mmol/L Normal 136-146 [facility] ([place]) Comment on above: Performed By: #### C BC, ADIFF, ANEU, BMP, GFR, TROP ####[address] [place], [place] [address] Urea nitrogen 13.5 mg/dL Normal 7.0-18.0 [facility] ([place]) Comment on above: Performed By: #### C BC, ADIFF, ANEU, BMP, GFR, TROP ####[address] [place], [place] [address] CBCon 06-26-2017 Erythrocyte distribution width Auto Ratio (RBC) 14.1 % Normal 11.5-14.5 [facility] ([place]) Comment on above: Performed By: #### C BC, ADIFF, ANEU, BMP, GFR, TROP ####[address] [place], [place] [address] Erythrocytes (RBC) 5.26 10 6/mcL Normal 4.04-6.13 [facility] ([place]) Comment on above: Performed By: #### C BC, ADIFF, ANEU, BMP, GFR, TROP ####[address] [place], [place] [address] Hematocrit (HCT) 47.2 % Normal 42.0-52.0 [facility] ([place]) Comment on above: Performed By: #### C BC, ADIFF, ANEU, BMP, GFR, TROP ####[address] [place], [place] [address] Hemoglobin mass conc (Bld) 16.1 G/dL Normal 14.0-18.0 [facility] ([place]) Comment on above: Performed By: #### C BC, ADIFF, ANEU, BMP, GFR, TROP ####[address] [place], [place] [address] MCH 30.6 pg Normal 27.0-31.2 [facility] ([place]) Comment on above: Performed By: #### C BC, ADIFF, ANEU, BMP, GFR, TROP ####[address] [place], [place] [address] MCHC mass conc (RBC) 34.1 G/dL Normal 31.8-35.4 [facility] ([place]) Comment on above: Performed By: #### C BC, ADIFF, ANEU, BMP, GFR, TROP ####[address] [place], [place] [address] MCV 89.7 fL Normal 80.0-94.0 [facility] ([place]) Comment on above: Performed By: #### C BC, ADIFF, ANEU, BMP, GFR, TROP ####[address] [place], [place] [address] Platelet mean volume (PMV) 7.5 fL Normal 7.4-10.4 [facility] ([place]) Comment on above: Performed By: #### C BC, ADIFF, ANEU, BMP, GFR, TROP ####[address] [place], [place] [address] Platelets 233 10 3/mcL Normal 130-400 [facility] ([place]) Comment on above: Performed By: #### C BC, ADIFF, ANEU, BMP, GFR, TROP ####[address] [place], [place] [address] WBC (Leukocytes) 7.40 10 3/mcL Normal 4.60-10.80 [facility] ([place]) Comment on above: Performed By: #### C BC, ADIFF, ANEU, BMP, GFR, TROP ####[address] [place], [place] [address] [facility] Note on 06-26-2017 [facility] Note Normal [facility] ([place]) Pat Eduon 06-26-2017 Pat Edu Normal [facility] ([place]) Patient Summary Documentson 06-26-2017 Patient Summary Documents Normal [facility] ([place]) TROPon 06-26-2017 Troponin I.cardiac mass conc ng/mL Normal 0.00-0.30 [facility] ([place]) Comment on above: Result Comment: Belo w measuring range>=0.30 Consistent with cardiac damage, increased clinical risk and possibility of myocardial infarction. Serial measurements, clinical history, appropriate symptoms and/or ECG changes may help assess possibility of [place].*Other non-acute coronary syndrome conditions such as CHF, myocarditis, pulmonary emboli, sepsis and cardiac surgery could result in myocardial damage and increased troponin levels. Performed By: #### L IPID, CMP, GFR ####[address] [place], [place] [address] Troponin I.cardiac mass conc ng/mL Normal 0.00-0.30 [facility] ([place]) Comment on above: Result Comment: >=0. 30 Consistent with cardiac damage, increased clinical risk and possibility of myocardial infarction. Serial measurements, clinical history, appropriate symptoms and/or ECG changes may help assess possibility of [place].*Other non-acute coronary syndrome conditions such as CHF, myocarditis, pulmonary emboli, sepsis and cardiac surgery could result in myocardial damage and increased troponin levels. Performed By: #### C BC, ADIFF, ANEU, BMP, GFR, TROP ####[address] [place], [place] [address] XR CHEST 1 VIEWon 06-26-2017 XR CHEST [...] AM Sign Date: 06/26/2017 10:55:26 AM Normal [facility] ([place]) .GFRon 03-12-2017 eGFR (non-black) mL/min/{1.73_m2} Normal [facility] ([place]) Comment on above: Result Comment: GFR Population [...] By: #### L IPID, CMP, GFR ####[address] [place], [place] [address] eGFR (non-black) 93 ml/min/1.73sqm Normal [facility] ([place]) Comment on above: Result Comment: GFR Population [...] #### L IPID, CMP, GFR ####[address] [place], [place] [address] CMPon 03-12-2017 Alanine aminotransferase (ALT) 19 U/L Normal 10-35 [facility] ([place]) Comment on above: Performed By: #### L IPID, CMP, GFR ####[address] [place], [place] [address] Albumin 4.5 G/dL Normal 3.4-4.8 [facility] ([place]) Comment on above: Performed By: #### L IPID, CMP, GFR ####[address] [place], [place] [address] Albumin/Globulin Ratio 1.9 {ratio} Normal 1.1-2.5 [facility] ([place]) Comment on above: Performed By: #### L IPID, CMP, GFR ####[address] [place], [place] [address] Alk Phos 123 IU/L Normal 40-135 [facility] ([place]) Comment on above: Performed By: #### L IPID, CMP, GFR ####[address] [place], [place] [address] Aspartate aminotransferase (AST) 21 U/L Normal 10-40 [facility] ([place]) Comment on above: Performed By: #### L IPID, CMP, GFR ####[address] [place], [place] [address] Bili Total 0.8 mg/dL Normal 0.2-1.0 [facility] ([place]) Comment on above: Performed By: #### L IPID, CMP, GFR ####[address] [place], [place] [address] BUN/Creatinine Ratio 10 ratio Normal 7-27 [facility] ([place]) Comment on above: Performed By: #### L IPID, CMP, GFR ####[address] [place], [place] [address] Calcium 9.3 mg/dL Normal 8.4-10.2 [facility] ([place]) Comment on above: Performed By: #### L IPID, CMP, GFR ####[address] [place], [place] [address] Chloride 105 mmol/L Normal 98-107 [facility] ([place]) Comment on above: Performed By: #### L IPID, CMP, GFR ####[address] [place], [place] [address] CO2 27 mmol/L Normal 23-31 [facility] ([place] Comment on above: Performed By: #### L IPID, CMP, GFR ####[address] [place], [place] [address] Creatinine 1.0 mg/dL Normal 0.6-1.2 [facility] ([place]) Comment on above: Performed By: #### L IPID, CMP, GFR ####[address] [place], [place] [address] Electrolyte Balance 9.0 mEq/L Normal [facility] ([place]) Comment on above: Performed By: #### L IPID, CMP, GFR ####[address] [place], [place] [address] Globulin 2.4 G/dL Normal [facility] ([place]) Comment on above: Performed By: #### L IPID, CMP, GFR ####[address] [place], [place] [address] Glucose mass conc 80 mg/dL Normal 80-115 [facility] ([place] Comment on above: Performed By: #### L IPID, CMP, GFR ####[address] [place], [place] [address] Potassium molar conc 4.3 mmol/L Normal 3.5-5.1 [facility] ([place]) Comment on above: Performed By: #### L IPID, CMP, GFR ####[address] [place], [place] [address] Protein 6.9 G/dL Normal 6.0-8.3 [facility] ([place] Comment on above: Performed By: #### L IPID, CMP, GFR ####[address] [place], [place] [address] Sodium 141 mmol/L Normal 136-146 [facility] ([place] Comment on above: Performed By: #### L IPID, CMP, GFR ####[address] [place], [place] [address] Urea nitrogen 9.6 mg/dL Normal 7.0-18.0 [facility] ([place] Comment on above: Performed By: #### L IPID, CMP, GFR ####[address] [place], [place] [address] LIPIDon 03-12-2017 Cholesterol 195 mg/dL Normal 131-200 [facility] ([place]) Comment on above: Result Comment: Chol esterol Reference Interval:Less than 200 [id number] Borderline high [id number] and above High risk Performed By: #### L IPID, CMP, GFR ####[address] [place], [place] [address] HDL Cholesterol 63 mg/dL Normal 35-90 [facility] ([place]) Comment on above: Result Comment: HDL Reference Interval:Less than 40 Low - high risk60 or above Optimal/lowers risk Performed By: #### L IPID, CMP, GFR ####[address] [place], [place] [address] LDL Cholesterol 119 mg/dL Normal 0-130 [facility] ([place]) Comment on above: Result Comment: LDL is a calculated result and requires a 12-hr fast.LDL Reference Interval:Less than 100 [id number] Near or above [id number] Borderline high [id number] High [id number] and above Very high risk Performed By: #### L IPID, CMP, GFR ####[address] [place], [place] [address] Triglyceride 63 mg/dL Normal 40-150 [facility] ([place]) Comment on above: Result Comment: Trig lyceride Reference Interval:Less than 150 [id number] Borderline high [id number] High [id number] or higher Very high risk Performed By: #### L IPID, CMP, GFR ####[address] [place], [place] [address] Encounters Encounter Date Encounter Type Care Provider Facility Start: 09-26-2024 End: 09-26-[address] Elvsi Cesar DO Work Phone: [facility] Work Phone: Start: 09-26-2024 End: 09-26-[address] Elvis Cesar DO -Laboratory Specimen Work Phone: Start: 09-26-2024 End: 09-26-2024 ambulatory Elvis Cesar Facility:[facility] Start: 07-22-2023 End: 07-22-2023 ambulatory [facility] Work Phone: Start: 07-22-2023 End: 07-22-2023 Patient encounter procedure [facility]-Laboratory Work Phone: Start: 07-04-2017 Ambulatory [facility] Fac ility:B Start: 06-26-2017 End: 06-26-2017 Emergency department patient visit JARED PATRICK Facility:B Start: 03-12-2017 End: 03-13-2017 Ambulatory [facility] Facility:[facility] Procedures Date Procedure Procedure Detail Performing Clinician Start: 09-26-2024 Urnls dip stick/tabl et reagent auto microscopy Dr. Elvis Cesar DO Work Phone: Plan of Treatment Date Care Activity Detail Author Cytology report of Body fluid Cyto stain [facility] Payers Date Payer Category Payer Medicare [id number] 2024 Unknown [id number] 2017 Self-pay 2017 Unknown [id number] Unknown [id number] Social History Date Type Detail Facility Start: 12-13-2019 Tobacco smoking status NHIS Unknown if ever smoked [facility] Start: 11-30-2019 None [facility] Start: 11-30-2019 Spouse/ Signif icant Other [facility] Start: 12-13-2019 Non-smoker [facility] Start: 1955 Sex Assigned At Male W [facility] Start: 12-13-2019 Tobacco smoking status NHIS Never smoked tobacco (finding) [facility] Medical Equipment Procedure Code Equipment Code Equipment Origin al Text Equipment Identifier Dates Thyroidectomy SUTURE,LIGA CLIP SM LT-100 FDA Start: 12-21-2019 Thyroidectomy SUTURE,LIGA CLIP SM LT-100 FDA Start: 12-21-2019 Thyroidectomy SUTURE,LIGA CLIP SM LT-100 FDA Start: 12-21-2019 Thyroidectomy SUTURE,LIGA CLIP SM LT-100 FDA Start: 12-21-2019 Evaluation note Note Date & Type Note Facility Evaluation note No assessment information availa ble [facility] Work Phone: Reason for referral (narrative) Note Date & Type Note Facility Reason for referral (narrative) No reason for referral information available [facility] Work Phone: Summary Purpose Family History [...] Yes December 21 0 2:22am Power of Supervisor Cellars Yes December 21 020 2:22am Additional Source Comments (unrecognized sect ion and content) No Status Records FoundNo Status Records Found INFORMATION SOURCE (unrecogn ized section and content) DATE CREATED AUTHOR 10/12/2017 [facility] DATE CREATED AUTHOR AUTHOR'S ORGANIZ ATION 10/06/2024 [facility] Care Teams (unrecognized sec tion and content) Team Status: Active Member Role Status Dates Dr. Elvis Cesar DO Family Provider Active Dr. Elvis Cesar DO Primary Care Provider Active Team Status: Inactive Member Role Status Dates Dr. Elvis Cesar DO Primary Care Prov ider, Attending Provider, Referring Provider Active Team Status: Inactive Member Role Status Dates Dr. Elvis Cesar DO Primary Care Provider Active Start: September 26, 2024 End: September 26, 2024 Dr. Elvis Cesar , Attending Provider Active Start: September 26, 2024 End: September 26, 2024 Dr. Elvis Cesar , DO Referring Provider Active Start: September 26, 2024 End: September 26, 2024 Goals (unrecognized section and content) Goals may be documented in a n alternate sectionGoals may be documented in an alternate section FOR RECORDS PERTAINING TO PATIENTS [...] BE BASED ON THE PRIMARY CLINICAL RECORDS. [facility]. provides no warranty or guarantee of the accuracy or completeness of information in this document.
[2025-03-22 11:02] LABS: Hematocrit 46.3 % (40-54); Hemoglobin 15.8 g/dL (13.0-16.5); Immature Granulocytes Count 0.020 X10^3/uL (0.0-0.0); Mean Corp Hgb Conc 34.1 g/dL (32-36); Mean Corpuscular Volume 90.3 fL (80-94); Mean Platelet Vol. 9.6 fl (6.2-12.0); NRBC Flagged by Analyzer 0 % (0-5); Platelet Count 264 K/mm3 (150-450); RBC Distribution Width CV 13.7 % (11.6-14.6); RBC Distribution Width SD 45.1 fl (35.1-43.9); Red Blood Count 5.13 M/mm3 (4.6-6.2); White Blood Count 8.2 K/mm3 (4.4-11.0)
[2025-03-22 11:46] LABS: AST(SGOT) 27 U/L (<=37); Alanine Aminotransfer ALT/SGPT 14 U/L (<=46); Albumin, Serum 4.3 g/dL (3.4-4.8); Alkaline Phosphatase 132 U/L (40-129); Anion Gap 10 (5-15); BUN 15 mg/dL (4-19); BUN/Creat Ratio 14.5 RATIO (10-20); Calcium,Total 9.0 mg/dL (7.6-11.0); Carbon Dioxide 27.1 mmol/L (21.0-32.0); Chloride 103 mmol/L (98-108); Globulin 2.9 g/dL (2.2-4.2); Glucose 91 mg/dL (70-99); PSA,Total - Annual Screen 0.97 ng/mL (0.02-4.00); Potassium 4.6 mmol/L (3.3-5.1)
[2025-03-22 12:36] LABS: Cholesterol 192 mg/dL (<=200); Low Density Lipoprotein Calc. 122 mg/dL; Triglycerides 60 mg/dL; Very Low Density Lipoprotein 12 mg/dL (5-40); cholesterol:hdl ratio screen 3.27
== END | disposition home or self-care (01) ==
LOC: LAB 09:54
PROVIDERS: PCP Family Medicine; Referring Provider Family Medicine; Visit Provider Family Medicine
DX: R79.89 Other specified abnormal findings of blood chemistry (principal); R17 Unspecified jaundice; E78.5 Hyperlipidemia, unspecified; Z12.5 Encounter for screening for malignant neoplasm of prostate
CPT/HCPCS: 36415; 80053; 80061; 84153; 85025; G0103